=== PATIENT | female | born 1975 | race Caucasian/White ===

== ENCOUNTER 2019-11-28 08:48 | Outpatient (CLI) | payer BC, SELFPAY ==
--- NOTE | ~2019-11-28 | US_ITS ---
EXAMINATION: US right upper quadrant EXAM DATE: 11/28/2019 09:12 INDICATION: Postprandial abdominal pain and nausea. TECHNIQUE: Multiple grayscale and Doppler images of the abdomen right upper quadrant were obtained (b y a technologist who performed the scan) and subsequently reviewed. There is no prior study for renetta hutson. FINDINGS: The pancreatic head and body are normal in appearance. The pancreatic tail is not visualized. There is echogenic liver parenchyma, hepatic steatosis. There are no focal liver lesions identified. Th ere is no evidence of intrahepatic biliary duct dilation. Portal venous flow was seen in the hepatop edal, normal direction and has normal Doppler waveform. No right-sided hydronephrosis. Common bile duct measures 4-5 mm, which is normal. The gallbladder wall is normal in thickness, with expected amount of distention. No sonographic evidence of pericholecystic fluid. There is no cholel ithiases. Technologist performing exam reports patient did not demonstrate sonographic Duff's sign. Please note that this sign is less reliable in patients who have received pain medication. IMPRESSION: 1. Hepatic steatosis. Reviewed, dictated and finalized at location A. RAL SUPPLY TECHNICIAN IMPRESSION: 1. Hepatic steatosis.
== END 2019-11-28 08:49 | disposition home or self-care (01) ==
LOC: ANHIMG 08:49
PROVIDERS: PCP Family Medicine; Visit Provider Family Medicine
DX: R10.9 Unspecified abdominal pain (principal); K76.0 Fatty (change of) liver, not elsewhere classified
CPT/HCPCS: 76705

== ENCOUNTER 2020-09-21 15:43 | Emergency (ER) | payer BC, SELFPAY ==
[2020-09-21 15:56] VITALS: BP 153/61; PULSE 56; RESP 18; TEMP 36.6; O2SAT 98
--- NOTE | 2020-09-21 16:28 | ED.URI ---
HPI - URI/Sore Throat General Chief Complaint: Upper Respiratory Infection Stated Complaint: Runny nose,hard to breathe Time Seen by Provider: 09/21/20 16:05 Source: patient and RN notes reviewed Mode of arrival: ambulatory Limitations: no limitations History of Present Illness HPI Narrative: Patient presents today with a 5-day history of body aches, nasal congestion with postnasal drip and rhinorrhea as well as an occasional cough and mild sore throat. Patient notes states the symptoms have moved to her chest and she now complains of mild shortness of breath and wheezing. History of asthma. Denies fever, nausea, vomiting, diarrhea. She has been taking Aleve and using her inhaler. Denies COVID-19 exposure, recent COVID-19 testing. She presents today with her daughter with similar symptoms. Patient is a non-smoker. MD elicited complaint: cough Related Data Home Medications Medication Instructions Recorded Confirmed alprazolam 09/03/19 diltiazem HCl 09/03/19 meloxicam 09/03/19 metoprolol succinate PO 09/03/19 Qvar 09/21/20 diazepam 09/21/20 magnesium oxide mg 09/21/20 Allergies Allergy/AdvReac Type Severity Reaction Status Date / Time sulfamethoxazole Allergy Intermediate Hives / Verified 03/30/19 20:26 Red Face trimethoprim Allergy Intermediate Hives / Verified 03/30/19 20:26 Red Face ciprofloxacin AdvReac Unknown Unknown Verified 09/21/20 16:11 Review of Systems Review of Systems: Narrative: CONSTITUTIONAL: Denies fever, chills, or sweats. + Body aches EYES: Denies visual changes, redness, or discharge. ENT: Denies rhinorrhea,sore throat, or otalgia. + Nasal congestion, mild sore throat CARDIOVASCULAR: Denies chest pain, palpitations, or edema. RESPIRATORY:+ Cough, shortness of breath, wheezing GASTROINTESTINAL: Denies abdominal pain, nausea, vomiting, or diarrhea. GENITOURINARY: Denies dysuria or hematuria. SKIN: Denies rash, itching, or wounds. MUSCULOSKELETAL: Denies back pain, joint pain, or myalgia. NEUROLOGIC: Denies headache, numbness, tingling, or weakness. PSYCH: Denies depression or anxiety. [facility] Past Medical History Medical History (Updated 09/21/20 @ 17:05 by RCIHARD ParekhP, ) Anxiety Asthma Hypertension Palpitations Comments At time of signature, I have reviewed and agree with nursing past medical, surgical, social and family history unless otherwise noted. Please see nursing chart for further information. There is no relevant family history pertinent to the presenting complaint Exam Narrative: Exam Narrative: GENERAL: Well-appearing, well-nourished, and in no acute distress. HEAD: Normocephalic, atraumatic. EYES: EOMI. No redness or drainage. Conjunctivae normal. ENT: Mucous membranes pink and moist. Nares clear. No rhinorrhea. TMs normal bilaterally. Throat normal. Uvula midline. NECK: Normal AROM. Supple. No lymphadenopathy. CHEST: No respiratory distress. Clear to auscultation. HEART: Regular rate and rhythm. No murmur appreciated. Normal peripheral pulses. EXTREMITIES: Normal range of motion. No edema. SKIN: Warm, dry, no rash. Capillary refill normal. Normal skin turgor. NEURO: No focal deficits. Alert and oriented x3. Gait steady. PSYCH: Normal affect. No signs of depression or anxiety. Course Course Emergency Course: Due to recent exposure and symptoms, patient may have a possible COVID-19 infection. Signs and symptoms discussed with patient. Patient educated to self-isolate in a room in his/her home away from others they live with. Use mask if available. Patient was advised not to leave house for any reason ? Self-treatment discussed including Tylenol for fever, pain, or myalgia, and cough cold medications for symptoms. Patient to check temperature daily and monitor for symptoms of respiratory distress. Patient should check in daily with primary care office/system via phone/virtual platform ? Nature of the disease to
== END 2020-09-21 17:09 | disposition home or self-care (01) ==
PROVIDERS: Emergency Provider Nurse Practitioner; PCP Family Medicine
DX: B34.9 Viral infection, unspecified (principal); J45.901 Unspecified asthma with (acute) exacerbation; Z20.828 Contact with and (suspected) exposure to other viral communicable diseases; I10 Essential (primary) hypertension; F41.9 Anxiety disorder, unspecified
CPT/HCPCS: 99213; G0463

== ENCOUNTER 2020-09-22 08:09 | Outpatient (NON) | payer BC, SELFPAY ==
[2020-09-22 23:00] LABS: SARS-CoV-2 RNA PCR Negative
== END 2020-09-22 08:10 ==
PROVIDERS: PCP Family Medicine; Visit Provider Nurse Practitioner
DX: Z20.828 Contact with and (suspected) exposure to other viral communicable diseases (principal); B34.9 Viral infection, unspecified
CPT/HCPCS: 87635; C9803; U0003

== ENCOUNTER → 2020-10-21 | Outpatient (NON) | payer BC, SELFPAY ==
[2020-10-22 00:16] LABS: SARS-CoV-2 RNA PCR Negative
== END | disposition home or self-care (01) ==
LOC: ANHCOVIDDT 09:34
PROVIDERS: PCP Family Medicine; Visit Provider Family Medicine
DX: R09.81 Nasal congestion (principal); Z20.822 Contact with and (suspected) exposure to COVID-19
CPT/HCPCS: C9803; U0003; U0005

== ENCOUNTER 2020-11-29 13:50 | Observation (INO) | payer BC, SELFPAY ==
--- NOTE | ~2020-11-29 | CT_ITS ---
EXAMINATION: CT abdomen pelvis w con EXAM DATE: 11/29/2020 15:34 INDICATION: Lower abdominal pain, rectal bleeding. Nausea and vomiting. TECHNIQUE: Spiral CT of the abdomen and pelvis was performed following intravenous injection of 100 m L Omnipaque 350. Axial, coronal and sagittal images were reviewed. The dose-length product (DLP) fo r this examination was 304.49 mGy-cm. The exposure was tailored according to patient size (auto mA e xposure control), and iterative reconstruction (ASIR) was used as additional dose reduction technique . Comparison is made to prior examination from 05/26/2016. FINDINGS: Splenic granulomas. The liver, adrenal glands and pancreas are unremarkable. Gallbladder is unremarkable. No biliary obstruction. Portal and splenic veins are patent. Kidneys enhance symm etrically. There is no hydronephrosis. The uterus is unremarkable. The bladder is unremarkable. There is no retroperitoneal or pelvic lymphadenopathy. There is moderate colonic wall edema along the splenic flexure and descending colon, colitis. Vascula ture supplying this enhances as expected. No evidence of pneumatosis. The appendix is not positively visualized. There is no pericecal inflammatory change to suggest appendicitis. The stomach and sma ll bowel are unremarkable. No free intraperitoneal gas. The heart is normal in size. There are n o pericardial or pleural effusions. The lung bases are unremarkable. Chronic bilateral asymmetric s acroiliitis. IMPRESSION: 1. Splenic flexure, descending colonic colitis. Most likely infectious etiology. 2. Chronic asymmetric sacroiliitis Reviewed, dictated and finalized at location A. DESIGN ENGINEER IMPRESSION: 1. Splenic flexure, descending colonic colitis. Most likely infectious etiolog y. 2. Chronic asymmetric sacroiliitis
[2020-11-29 13:56] VITALS: BP 154/81; PULSE 77; RESP 16; TEMP 37; O2SAT 98
--- NOTE | 2020-11-29 14:17 | ED.ABDPAIN ---
HPI - Abdominal Pain General Chief Complaint: Abdominal Pain Stated Complaint: blood in stool, diarrhea flank pain Time Seen by Provider: 11/29/20 14:02 Source: patient and family Mode of arrival: ambulatory Limitations: no limitations History of Present Illness HPI narrative: Patient is 45 years old white female presents with nausea, vomiting and diarrhea started 4 days ago. Patient reported above symptoms started 2 hours after having a meal at a restaurant. Patient denies any fever or chills. Likely patient noticed blood in the toilet because she is straining to have a bowel movement without response. History of asthma, hypertension, section x2, does not take medications, does not smoke, drink or uses drugs. Related Data Home Medications Medication Instructions Recorded Confirmed alprazolam 09/03/19 diltiazem HCl 09/03/19 meloxicam 09/03/19 metoprolol succinate PO 09/03/19 Qvar 09/21/20 diazepam 09/21/20 magnesium oxide mg 09/21/20 Allergies Allergy/AdvReac Type Severity Reaction Status Date / Time sulfamethoxazole Allergy Intermediate Hives / Verified 11/29/20 14:06 Red Face trimethoprim Allergy Intermediate Hives / Verified 11/29/20 14:06 Red Face levofloxacin Allergy Hives Verified 11/29/20 17:42 Review of Systems Review of Systems: Narrative: CONSTITUTIONAL: Denies fever, chills, or sweats. EYES: Denies visual changes, redness, or discharge. ENT: Denies rhinorrhea, congestion, sore throat, or otalgia. CARDIOVASCULAR: Denies chest pain, palpitations, or edema. RESPIRATORY: Denies cough or dyspnea. GASTROINTESTINAL: Denies abdominal pain, nausea, vomiting, or diarrhea. GENITOURINARY: Denies dysuria or hematuria. SKIN: Denies rash or itching. MUSCULOSKELETAL: Denies back pain, joint pain, or myalgia. NEUROLOGIC: Denies headache, numbness, or weakness. PSYCHIATRIC: Denies anxiety or depression. [facility] Past Medical History Medical History (Updated 11/29/20 @ 16:51 by Lesly Maldonado PA-C) Anxiety Asthma Hypertension Pre-diabetes Surgical History Surgical History (Updated 11/29/20 @ 16:48 by Lesly Maldonado PA-C) History of 2 sections History of tubal ligation Family History Family History Other Acute myocardial infarction Breast cancer Social History Social History (Updated 11/29/20 @ 16:49 by Lesly Maldonado PA-C) Social History: The patient lives in [place] with her fiance. 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 No alcohol or illicit substance abuse. She designates her fiance, Brooks Riggs, as her surrogate decision maker and she wishes to be a full code. Exam Narrative: Exam Narrative: General appearance: Well-developed, well-nourished Skin: Normal color Head: Normocephalic, nontraumatic Eyes: Clear conjunctiva ENT: Oropharynx normal, ears normal, nose normal Neck: Supple, nontender Chest and respiratory: Airway patent, no respiratory distress, no accessory muscle use Heart: Regular rate/rhythm Abdomen: Soft, mild diffuse tenderness lower abdomen bilaterally, no guarding or rebound, quiet bowel sounds. Vascular: Normal peripheral pulses, normal capillary refill. Musculoskeletal: Normal range of motion, nontender back Neurologic: Alert and oriented ?3, PERMIT SPECIALIST is normal as tested, no gross motor deficit Const: General: cooperative Course Course Emergency Course: Stable Reevaluation(s) Reevaluation #1: Patient received the first dose of Flagyl, followed by the second dose of Levaquin few minutes later patient developed itching skin rash, Levaq
[2020-11-29 14:32] LABS: Basophils Absolute Auto 0.1 K/mm3 (0.0-0.1); Basophils Percent Auto 0.4 % (0.2-1.2); Eosinophils Absolute Auto 0.2 K/mm3 (0-0.3); Eosinophils Percent Auto 1.4 % (0-4.4); Hematocrit 45.4 % (37.0-47.0); Hemoglobin 15.4 g/dL (12.0-15.0); Immature Granulocyte Absolute 0.06 K/mm3 (0.00-0.031); Immature Granulocyte Percent A 0.4 % (0-0.5); Lymphocytes Absolute Auto 3.18 K/mm3 (0.9-3.2); Lymphocytes Percent Auto 19.9 % (18.3-44.2); Mean Corpuscular HGB Conc 33.9 g/dl (32-36); Mean Corpuscular Hemoglobin 32.3 pg (26-34); Mean Corpuscular Volume 95.2 fl (80-100); Mean Platelet Volume 11.4 fl (7.4-10.4); Monocytes Percent Auto 6.3 % (2.6-8.5); Neutrophils Absolute Auto 11.5 K/mm3 (1.3-6.7); Neutrophils Percent Auto 71.6 % (45.5-73.1); Platelet Count Result 273 k/mm3 (150-375); Red Blood Count 4.77 M/mm3 (4.2-5.4); Red Cell Distribution Width 12.2 % (11.5-14.5)
[2020-11-29] MEDS: SODIUM CHLORIDE 0.9% IV 1,000 ML 999 ML IV CONT (14:41)
[2020-11-29 14:42] LABS: Add Urine Microscopic? YES; Appearance Urine Cloudy (Clear); Bacteria Urine Trace /hpf; Bilirubin Urine Negative (Negative); Blood Urine 2+ (Negative); Color Urine Yellow (Yellow); Glucose Urine UA Negative (Negative); Ketones Urine Negative (Negative); Leukocyte Esterase Ur Negative LEU/UL (Negative); Mucus Urine Heavy /lpf; Nitrate Urine Negative (Negative); Protein Urine 1+ mg/dL (Negative); Squamous Epithelial Cell Urine Many /hpf (Few); Urobilinogen Urine Negative mg/dL (<2.0)
[2020-11-29 14:44] LABS: Alanine Aminotransferase 13 U/L (4-35); Albumin Level 4.2 g/dL (3.5-5.1); Alkaline Phosphatase 77 U/L (38-126); Anion Gap 10 mmol/L (8-16); Aspartate Amino Transferase 22 U/L (14-36); Bilirubin,Total 0.3 mg/dL (0.2-1.3); Blood Urea Nitrogen 17 mg/dL (7-17); Calcium 9.4 mg/dL (8.4-10.2); Carbon Dioxide 27 mmol/L (22-30); Chloride 103 mmol/L (98-107); Estimated CRCL calculation 65 ml/min; Estimated Glomerular Filt Rate > 60; Glucose 130 mg/dL (65-105); Lipase 79 U/L (23-300); Potassium 3.7 mmol/L (3.4-5.0); Sodium 140 mmol/L (137-145)
[2020-11-29 14:48] LABS: Urine Pregnancy Test Negative
[2020-11-29 14:49] LABS: Pregnancy On Board Control Positive
[2020-11-29] MEDS: metroNIDAZOLE 500 MG/ISO 100ML 500 MG/100 ML BAG 100 MG IVPB (16:19)
[2020-11-29 16:20] VITALS: BP 129/66; PULSE 67; RESP 16; O2SAT 100
--- NOTE | 2020-11-29 16:30 | PM.IMHP ---
H&P: HPI History of Present Illness Date/Time: 11/29/20 16:30 Chief Complaint: Abdominal pain and bloody stools Narrative: This is a 45-year-old female with hypertension, asthma, and pre diabetes who presented to the emergency department earlier today from home for evaluation of abdominal pain and bloody stools. On Tuesday evening she had reheated, leftover shrimp tacos from a local restaurant and approximately 2-1/2 hours thereafter she developed severe, diffuse abdominal cramping. She had a sudden urge to have a bowel movement however was unable to do so and she has had intermittent tenesmus and loose stool since that time. Due to the tenesmus it sounds like she has indeed strained to have bowel movements and over the past couple of days she has noticed bright red blood in at times small clots with each bowel movement. The 1st night of her symptoms she had nausea and vomiting but that has since subsided. She has been afraid to eat too much because of the pain, but tolerated toast this morning and she reports being hungry at this time. No fever, chills, or sweats however her fiance believes that she felt a bit warm earlier. 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 She has not taken any medication at home for symptoms aside from Tylenol on a few occasions that did not necessarily help with the discomfort. Weight has remained stable. No history of inflammatory bowel disease. Review of Systems Review of Systems: Narrative: Twelve systems were reviewed with pertinent positives and negatives as per HPI. No cold or flu symptoms. She denies cough and shortness of breath. She just finished a 5 day course of Macrobid today for recent urinary tract infection. Denies back pain. No history of autoimmune diseases. Recently told she was prediabetic and she was given a glucometer to monitor her glucose, with no significant eyes. Except as documented, all other systems were reviewed and are negative. [facility] Past Medical History Medical History Anxiety Asthma Hypertension Pre-diabetes Surgical History Surgical History (Updated 11/29/20 @ 16:48 by Lesly Maldonado PA-C) History of 2 sections History of tubal ligation Family History Family History Other Acute myocardial infarction Breast cancer Social History Social History (Updated 11/29/20 @ 16:49 by Lesly Maldonado PA-C) Social History: The patient lives in [place] with her fiance. 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 No alcohol or illicit substance abuse. She designates her fiance, Brooks Riggs, as her surrogate decision maker and she wishes to be a full code. Meds Home Medications and Allergies Home Medications Medication Instructions Recorded Confirmed Type alprazolam 09/03/19 History diltiazem HCl 09/03/19 History meloxicam 09/03/19 History metoprolol succinate PO 09/03/19 History triamcinolone acetonide 1 applic TOPICAL BID #30 gm 09/03/19 Rx Qvar 09/21/20 History diazepam 09/21/20 History magnesium oxide mg 09/21/20 History prednisone 50 mg PO DAILY 5 Days #5 tablet 09/21/20 Rx Allergies Allergy/AdvReac Type Severity Reaction Status Date / Time sulfamethoxazole Allergy Intermediate Hives / Verified 11/29/20 14:06 Red Face trimethoprim Allergy Intermediate Hives / Verified 11/29/20 14:06 Red Face Vital Signs Vital Signs - 24 hr 11/29/20 13:56 11/29/20 16:20 Temperature 98.6 F Pulse Rate 77 67 Respiratory Rate 16 16 Blood Pressure 154/81 H 129/66 Pulse Oximetry 98 100 Exam Narrative: Exam Narrative: General: Well-developed female lying on her left side in bed in no distress. Weight: 60.6 kilograms. BMI: 26.1. HEENT: PERRL, EOMI. Sclera
[2020-11-29 17:32] VITALS: BP 120/65; PULSE 83; RESP 16; O2SAT 98
--- NOTE | 2020-11-29 17:39 | PC.NURSE ---
called to room approx 10 mins after iv levaquin started. pt c/o itching scalp, face and chest. several small hives observed to anterior chest. denies sob or difficulty swallowing. iv stopped and ed physician notified. will give benadryl iv stat.
[2020-11-29] MEDS: diphenhydrAMINE HCl INJ 50 MG/ML VIAL 25 MG IV PUSH (17:45)
[2020-11-29 17:50] LABS: Hemoglobin A1C 5.2 % (<5.7)
--- NOTE | 2020-11-29 17:55 | PC.NURSE ---
This patient, Noelle Jordan, was admitted to Medical Room 340-01. Patient/family oriented to hospital policies and general routines including ID bracelet, bed and alarms, visiting hours, pain management, procedures, bathroom and other care routines, personal items, smoking policy, room service/diet, and visiting hours. Information on how to activate the Rapid Response Team has been discussed. Patient/Family are encouraged to report perceived risks to care and to ask questions if they do not understand what they are told or what they should do.
[2020-11-29 17:57] VITALS: BP 142/64; PULSE 67; RESP 16; TEMP 36.9; O2SAT 96
--- NOTE | 2020-11-29 17:58 | PC.NURSE ---
Patient voiced that she can tolerate a soft diet when I voiced that she would start out on a clear liquid diet.
[2020-11-29 18:21] VITALS: BMI 26.7
[2020-11-29] MEDS: SODIUM CHLORIDE 0.9% IV 1,000 ML 75 ML IV CONT (19:09)
[2020-11-29 19:25] VITALS: BP 100/50; PULSE 69; RESP 14; TEMP 37.2; O2SAT 96
[2020-11-29 22:11] LABS: Hematocrit 39.6 % (37.0-47.0); Hemoglobin 13.4 g/dL (12.0-15.0)
[2020-11-30] VITALS (7 sets, daily range): BP systolic 109–123; BP diastolic 47–68; PULSE 55–60; RESP 14–16; TEMP 36.1–36.7; O2SAT 93–99
[2020-11-30 06:09] LABS: Basophils Absolute Auto 0.1 K/mm3 (0.0-0.1); Basophils Percent Auto 0.4 % (0.2-1.2); Eosinophils Absolute Auto 0.3 K/mm3 (0-0.3); Eosinophils Percent Auto 1.9 % (0-4.4); Hematocrit 37.9 % (37.0-47.0); Hemoglobin 12.5 g/dL (12.0-15.0); Immature Granulocyte Absolute 0.06 K/mm3 (0.00-0.031); Immature Granulocyte Percent A 0.4 % (0-0.5); Lymphocytes Absolute Auto 3.32 K/mm3 (0.9-3.2); Lymphocytes Percent Auto 24.8 % (18.3-44.2); Mean Corpuscular Hemoglobin 31.6 pg (26-34); Mean Corpuscular Volume 95.7 fl (80-100); Mean Platelet Volume 11.8 fl (7.4-10.4); Monocytes Absolute Auto 0.9 K/mm3 (0.1-0.6); Monocytes Percent Auto 6.6 % (2.6-8.5); Neutrophils Absolute Auto 8.8 K/mm3 (1.3-6.7); Neutrophils Percent Auto 65.9 % (45.5-73.1); Platelet Count Result 226 k/mm3 (150-375); Red Blood Count 3.96 M/mm3 (4.2-5.4); Red Cell Distribution Width 12.4 % (11.5-14.5); White Blood Count 13.4 K/mm3 (4.5-10.0)
[2020-11-30 06:26] LABS: Anion Gap 4 mmol/L (8-16); Blood Urea Nitrogen 10 mg/dL (7-17); Calcium 8.3 mg/dL (8.4-10.2); Carbon Dioxide 26 mmol/L (22-30); Chloride 109 mmol/L (98-107); Estimated CRCL calculation 74 ml/min; Estimated Glomerular Filt Rate > 60; Glucose 90 mg/dL (65-105); Magnesium 1.8 mg/dL (1.6-2.3); Potassium 3.8 mmol/L (3.4-5.0); Sodium 139 mmol/L (137-145)
[2020-11-30] MEDS: ACETAMINOPHEN 325 MG TABLET 650 MG PO (09:39)
[2020-11-30] MEDS: SODIUM CHLORIDE 0.9% IV 1,000 ML 75 ML IV CONT ×2 (09:40→23:59)
[2020-11-30] MEDS: MAGNESIUM OXIDE 400 MG TABLET PO (11:35)
[2020-11-30] MEDS: METOPROLOL SUCCINATE EXT REL 50 MG TABCR 100 MG PO (11:38)
--- NOTE | 2020-11-30 11:47 | WPDGICN ---
Assessment and Plan Assessment and plan (1) Colitis: Code(s): K52.9 - Noninfective gastroenteritis and colitis, unspecified Status: Acute Assessment and Plan: probably infectious, less likely ischemic continue with supportive care, antibiotics, fluids advance diet slowly as tolerated pending stool samples she is already doing better, consider colonoscopy in about 6 weeks as outpatient (2) Bloody stools: Code(s): K92.1 - Melena Status: Acute Assessment and Plan: from colitis (3) Nausea and vomiting in adult: Code(s): R11.2 - Nausea with vomiting, unspecified Status: Acute Assessment and Plan: resolved now (4) Lower abdominal pain: Code(s): R10.30 - Lower abdominal pain, unspecified Status: Acute Assessment and Plan: medical treatment, better (5) Bloody diarrhea: Code(s): R19.7 - Diarrhea, unspecified Status: Acute GI Consult Note Consult date/time: 11/30/20 11:47 Reason for consult: colitis HPI: Noelle Jordan is a 45 year old female with history of HTN otherwise healthy. Last Tuesday she had for lunch chilli, then for dinner street tacos and after 2 hours had new onset of severe cramping in abdomen with tenesmus, followed by nausea and vomiting for few hours, then loose stools with streak of blood. Nausea resolved but still was having diarrhea and pain for which she was only on a bland diet, finally decided to come to ER. CT scan reviewed which showed splenic flexure, descending colonic colitis. Most likely infectious etiology. Admitted to hospital, stool sample pending and started on antibiotics. Also had leukocytosis, normal liver enzymes and lactic acid. She is feeling better and is hungry. Never had scopes or similar problem. Review of Systems Constitutional: Constitutional: Reports chills Eyes: Eyes: Reports no additional eye complaints ENT: Reports system reviewed and no additional complaints, except as documented Cardiovascular: Cardiovascular: Denies chest pain Respiratory: Respiratory: Denies dyspnea Gastrointestinal: Gastrointestinal: Reports abdominal pain, Reports diarrhea, Reports nausea and Reports vomiting Genitourinary: Genitourinary: Denies hematuria Musculoskeletal: Musculoskeletal: Denies neck pain Integumentary/Breasts: Skin/Breast: Denies dry skin Neurologic: Denies headache(s) Psychiatric: Psychiatric: Reports no additional psychiatric complaints Endocrine: Endocrine: Denies cold intolerance Hematologic/Lymphatic: Hematologic/Lymphatic: Denies easy bruising PMFSH Past Medical History Medical History (Updated 11/30/20 @ 11:52 by Norm Connolly MD) Anxiety Asthma Bloody diarrhea Hypertension Lower abdominal pain Nausea and vomiting in adult Pre-diabetes Surgical History Surgical History (Updated 11/29/20 @ 16:48 by Lesly Maldonado PA-C) History of 2 sections History of tubal ligation Family History Family History Other Acute myocardial infarction Breast cancer Social History Social History (Updated 11/29/20 @ 16:49 by Lesly Maldonado PA-C) Social History: The patient lives in [place] with her fiance. 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 No alcohol or illicit substance abuse. She designates her fiance, Brooks Rigsg, as her surrogate decision maker and she wishes to be a full code. Alcohol intake: never Substance use type: does not use Spiritual care concerns: No Meds Home Medications and Allergies Home Medications Medication Instructions Recorded Confirmed Type alprazolam 0.5 mg PO BID PRN 09/03/19 11/29/20 History metoprolol succinate 100 mg PO DAILY 09/03/19 11/29/20 History diazepam 2 mg PO HS PRN 09/21/20 11/29/20 History magnesium oxide 400 mg PO BID 09/21/20 11/29/20 History albuterol sulfate [ProAir
--- NOTE | 2020-11-30 12:33 | PM.IMPN ---
Progress Note: A&P Assessment and Plan (1) Infectious colitis: Code(s): A09 - Infectious gastroenteritis and colitis, unspecified Status: Acute Assessment and Plan: Patient was having nausea/vomiting/diarrhea on 11/26/20, and continued to persistently have diarrhea and abdominal cramping daily with associated bright red blood in her stools. On arrival, CT consistent with probable infectious colitis and she has been started on levofloxacin and metronidazole. Leukocytosis improving. Stool studies will be obtained. Dr. Connolly GI was consulted by the ED physician his input is appreciated. Currently she is still having abdominal cramping, distension and bowel movements. Continue monitoring, IV fluid hydration, IV antibiotics (2) Bloody stools: Code(s): K92.1 - Melena Status: Acute Assessment and Plan: Most likely from colitis. Bloody stools for 5 days. H&H is currently normal. Continue monitoring H&H daily. (3) Hypertension: Code(s): I10 - Essential (primary) hypertension Status: Inactive Assessment and Plan: Blood pressure was 154/81 on arrival, this morning it was 123/63.. Since then blood pressure has remained stable. Will continue home metoprolol. (4) Pre-diabetes: Code(s): R73.03 - Prediabetes Status: Inactive Assessment and Plan: Hemoglobin A1c is 5.2%. No need for monitoring of glucose at this time. Time Spent With Patient Time with patient: 25 - 35 minutes Subjective Date/time seen: 11/30/20 12:33 Interval history: Date of service 11/30/2020: Patient still having lower abdominal cramping and distension, and a few diarrhea bowel movements today. Still with some blood in her stool. Denies any fevers, chills. She is hungry at this time and ready to start advancing her diet. Denies any nausea or vomiting. She denies any chest pain, shortness of breath, cough, leg swelling, calf pain, or any other symptoms at this time. Review of Systems Review of Systems: All systems reviewed & are unremarkable except as noted in HPI and below Exam Narrative: Exam Narrative: General: 45-year-old woman sitting up in bed watching TV. Appears comfortable. In no acute distress. Skin: No jaundice or cyanosis. Good skin turgor. Neck: Full range of motion. Supple. Respiratory: Lungs are clear to auscultation bilaterally. No bony chest wall tenderness. Cardiovascular: The heart has a regular rate and rhythm without murmur. Lower extremities: No lower extremity edema. Distal pulses are easily palpated. No calf tenderness to palpation. Gastrointestinal: Slight abdominal distension and tenderness noted. Otherwise The abdomen is soft with active bowel sounds. Psychiatric: Lucid and oriented. Memory intact. Neurologic: No focal deficits. Speech is clear. No facial drooping. Objective Data Vital Signs Vital Signs: Vital Signs - 24 hr 11/29/20 13:56 11/29/20 16:20 11/29/20 17:32 Temperature 98.6 F Pulse Rate 77 67 83 Respiratory Rate 16 16 16 Blood Pressure 154/81 H 129/66 120/65 Pulse Oximetry 98 100 98 11/29/20 17:57 11/29/20 19:25 11/30/20 05:26 Temperature 98.4 F 99 F 97.5 F L Pulse Rate 67 69 57 L Respiratory Rate 16 14 14 Blood Pressure 142/64 H 100/50 L 114/47 L Pulse Oximetry 96 96 96 11/30/20 07:29 11/30/20 09:54 11/30/20 11:37 Temperature Pulse Rate 55 L 55 L Respiratory Rate Blood Pressure 123/63 120/61 Pulse Oximetry 93 Intake/Output Intake/Output: Intake & Output 11/27/20 11/28/20 11/29/20 11/30/20 23:59 23:59 23:59 23:59 Intake Total 1200 1450 Output Total 600 Balance 1200 850 Meds/Results Medications: Active Medications Generic Name Dose Route Start Last Admin Trade Nam
[2020-11-30] MEDS: ALBUTEROL SULFATE (*SP) AEROSOL 1 PUFF 2 PUFF INHALATION (15:11)
[2020-12-01 05:29] VITALS: BP 101/55; PULSE 52; RESP 14; TEMP 36.2; O2SAT 96
[2020-12-01 05:43] LABS: Hematocrit 36.2 % (37.0-47.0); Mean Corpuscular HGB Conc 33.1 g/dl (32-36); Mean Corpuscular Volume 96.5 fl (80-100); Mean Platelet Volume 11.2 fl (7.4-10.4); Platelet Count Result 197 k/mm3 (150-375); Red Blood Count 3.75 M/mm3 (4.2-5.4); Red Cell Distribution Width 12.4 % (11.5-14.5); White Blood Count 8.5 K/mm3 (4.5-10.0)
[2020-12-01 06:00] LABS: Anion Gap 0 mmol/L (8-16); Blood Urea Nitrogen 10 mg/dL (7-17); Calcium 7.8 mg/dL (8.4-10.2); Carbon Dioxide 26 mmol/L (22-30); Chloride 111 mmol/L (98-107); Estimated CRCL calculation 85 ml/min; Estimated Glomerular Filt Rate > 60; Glucose 91 mg/dL (65-105); Potassium 3.6 mmol/L (3.4-5.0); Sodium 137 mmol/L (137-145)
[2020-12-01 08:39] VITALS: PULSE 56
[2020-12-01] MEDS: METOPROLOL SUCCINATE EXT REL 50 MG TABCR 100 MG PO (08:39)
[2020-12-01] MEDS: MAGNESIUM OXIDE 400 MG TABLET PO (08:40)
[2020-12-01] MEDS: CHOLECALCIFEROL 1,000 UNITS TABLET 1000 UNITS PO (08:59)
[2020-12-01] MEDS: ACETAMINOPHEN 325 MG TABLET 650 MG PO (10:15)
[2020-12-01] MEDS: ALBUTEROL SULFATE (*SP) AEROSOL 1 PUFF 2 PUFF INHALATION (10:48)
[2020-12-01 14:00] VITALS: BP 102/50; PULSE 50; RESP 16; TEMP 36.3; O2SAT 98
--- NOTE | 2020-12-01 14:01 | WPDGIPROGNO ---
Progress Note: A&P Assessment and Plan (1) Colitis: Code(s): K52.9 - Noninfective gastroenteritis and colitis, unspecified Status: Acute Assessment and Plan: she is doing better, tolerating diet and still some pain but improved on antibiotics, Cdiff negative and other stool sample pending (2) Bloody diarrhea: Code(s): R19.7 - Diarrhea, unspecified Status: Acute Assessment and Plan: no more blood in stool will need a colonoscopy in 6-8 weeks as outpatient (3) Lower abdominal pain: Code(s): R10.30 - Lower abdominal pain, unspecified Status: Acute Assessment and Plan: better with supportive care will reassess tomorrow and see if she can go home (4) Nausea and vomiting in adult: Code(s): R11.2 - Nausea with vomiting, unspecified Status: Acute Subjective Date/time seen: 12/01/20 14:01 Interval history: still abdominal cramping but overall better, no more blood in stools Review of Systems Review of Systems: All systems reviewed & are unremarkable except as noted in HPI and below Exam Const: General: comfortable and no acute distress HENMT: General nose exam: Normal nares present Eyes: General: appearance normal, both eyes and all related structures Neck: Neck: no JVD Resp: Auscultation: clear to auscultation bilaterally Cardio: Rate: regular rate Rhythm: regular rhythm GI: Inspection: non-distended GI Palp: Yes Soft to palpation, Yes Tenderness to palpation present (GI) (mild pain in lower abdomen, no rebound) and No Guarding due to palpation present (GI) Auscultation: normal bowel sounds Skin: General skin exam: normal color Neuro: General: gait normal Speech: normal speech Extrem: General: normal to inspection Psych: Mental Status: mental status grossly normal Objective Data Vital Signs Vital Signs: Vital Signs - 24 hr 11/30/20 19:45 12/01/20 05:29 12/01/20 08:39 Temperature 97 F L 97.2 F L Pulse Rate 60 52 L 56 L Respiratory Rate 14 14 Blood Pressure 109/50 L 101/55 L Pulse Oximetry 98 96 Intake/Output Intake/Output: Intake & Output 11/28/20 11/29/20 11/30/20 12/01/20 23:59 23:59 23:59 23:59 Intake Total 1200 3340 1150 Output Total 1400 1450 Balance 1200 1940 -300 Meds/Results Medications: Active Medications Generic Name Dose Route Start Last Admin Trade Name Freq PRN Reason Stop Dose Admin Acetaminophen 650 mg 11/30/20 08:38 12/01/20 10:15 Acetaminophen 325 Mg Tablet PO 650 mg Q4H PRN Administration Pain Rated 1-3 Albuterol 2 puff 11/30/20 08:29 12/01/20 10:48 Albuterol Sulfate (*Sp) Aerosol 1 Puff INHALATION 2 puff TID PRN Administration Shortness Of Breath Alprazolam 0.5 mg 11/30/20 08:29 Alprazolam (*Crx) 0.5 Mg Tablet PO BID PRN Anxiety Diazepam 2 mg 11/30/20 08:29 Diazepam (*Crx) 2 Mg Tablet PO HS PRN Insomnia Diltiazem HCl 120 mg 11/30/20 09:00 12/01/20 08:40 Diltiazem Hcl Cd 120 Mg Cap.Sa.24h PO 120 mg DAILY ENOCH Administration Piperacillin/Tazobactam/Dextrose 3.375 gm in 50 mls @ 100 mls/hr 11/30/20 00:00 12/01/20 12:09 Zosyn 3.375 Gm/D5w 50ml Pm IVPB Infused Q6HR ENOCH Infusion Magnesium Oxide 400 mg 12/01/20 09:00 12/01/20 08:40 Magnesium Oxide 400 Mg Tablet PO 400 mg QAM ENOCH Administration Metoprolol Succinate 100 mg 11/30/20 09:00 12/01/20 08:39 Metoprolol Succinate Ext Rel 50 Mg Tabcr PO 100 mg DAILY ENOCH Administration Ondansetron HCl 4 mg 11/29/20 16:27 Ondansetron Inj 4 Mg/2 Ml Vial IV PUSH Q4H PRN Nausea Vitamin D 1,000 units 12/01/20 09:00 12/01/20 08:59 Cholecalciferol 1,000 Units Tablet PO 12/31/20 09:01 1,000 units DAILY ENOCH Administration Radiology Results: ITS Impressions Abdomen/Pelvis CT 11/29/20 15:37 IMPRESSION: 1. Splenic flexure, descending colonic colitis. Most likely infectious etiology. 2. Chronic asymmetric
--- NOTE | 2020-12-01 14:38 | PM.IMPN ---
Progress Note: A&P Assessment and Plan (1) Infectious colitis: Code(s): A09 - Infectious gastroenteritis and colitis, unspecified Status: Acute Assessment and Plan: Patient was having nausea/vomiting/diarrhea on 11/26/20, and continued to persistently have diarrhea and abdominal cramping daily with associated bright red blood in her stools. On arrival, CT consistent with probable infectious colitis and she has been started on levofloxacin and metronidazole. Leukocytosis normalized. Stool studies will be obtained. Negative for C. diff and Cryptospordium. Pending others. Dr. Connolly GI was consulted by the ED physician his input is appreciated. Currently she is still having abdominal cramping, distension and bowel movements. Continue monitoring, IV fluid hydration, IV antibiotics (2) Bloody stools: Code(s): K92.1 - Melena Status: Acute Assessment and Plan: Most likely from colitis. Bloody stools for 5 days. H&H is currently normal. Continue monitoring H&H daily. (3) Hypertension: Code(s): I10 - Essential (primary) hypertension Status: Inactive Assessment and Plan: Blood pressure was 154/81 on arrival, this morning it was 101/55. Since then blood pressure has remained stable. Will continue home metoprolol. (4) Pre-diabetes: Code(s): R73.03 - Prediabetes Status: Inactive Assessment and Plan: Hemoglobin A1c is 5.2%. No need for monitoring of glucose at this time. Time Spent With Patient Time with patient: 25 - 35 minutes Subjective Date/time seen: 12/01/20 14:38 Interval history: Date of service 12/01/2020: Patient still having lower abdominal cramping and distension, and a few diarrhea bowel movements today. Denies much improvement, but denies any more blood in the stool. Denies any fevers, chills. She is hungry at this time and ready to start advancing her diet. Denies any nausea or vomiting. She denies any chest pain, shortness of breath, cough, leg swelling, calf pain, or any other symptoms at this time. Review of Systems Review of Systems: All systems reviewed & are unremarkable except as noted in HPI and below Exam Narrative: Exam Narrative: General: 45-year-old woman sitting up in bed talking to her significant other. Appears comfortable. In no acute distress. Skin: No jaundice or cyanosis. Good skin turgor. Neck: Full range of motion. Supple. Respiratory: Lungs are clear to auscultation bilaterally. No bony chest wall tenderness. Cardiovascular: The heart has a regular rate and rhythm without murmur. Lower extremities: No lower extremity edema. Distal pulses are easily palpated. No calf tenderness to palpation. Gastrointestinal: Improved abdominal distension and tenderness noted. Otherwise The abdomen is soft with active bowel sounds. Psychiatric: Lucid and oriented. Memory intact. Neurologic: No focal deficits. Speech is clear. No facial drooping. Objective Data Vital Signs Vital Signs: Vital Signs - 24 hr 11/30/20 19:45 12/01/20 05:29 12/01/20 08:39 Temperature 97 F L 97.2 F L Pulse Rate 60 52 L 56 L Respiratory Rate 14 14 Blood Pressure 109/50 L 101/55 L Pulse Oximetry 98 96 Intake/Output Intake/Output: Intake & Output 11/28/20 11/29/20 11/30/20 12/01/20 23:59 23:59 23:59 23:59 Intake Total 1200 3340 2150 Output Total 1400 1450 Balance 1200 1940 700 Meds/Results Medications: Active Medications Generic Name Dose Route Start Last Admin Trade Name Freq PRN Reason Stop Dose Admin Acetaminophen 650 mg 11/30/20 08:38 12/01/20 10:15 Acetaminophen 325 Mg Tablet PO 650 mg Q4H PRN Administration Pain Rated 1-3 Albuterol 2 puff 11/30/20 08:29 02/22/21 10:48 Rene
[2020-12-01 21:51] VITALS: BP 115/45; PULSE 55; RESP 16; TEMP 36.3; O2SAT 99
[2020-12-02 06:40] VITALS: BP 106/54; PULSE 50; RESP 16; TEMP 35.8; O2SAT 96
[2020-12-02] MEDS: MAGNESIUM OXIDE 400 MG TABLET PO (08:56)
[2020-12-02] MEDS: CHOLECALCIFEROL 1,000 UNITS TABLET 1000 UNITS PO (08:56)
[2020-12-02 08:57] VITALS: PULSE 56
[2020-12-02] MEDS: METOPROLOL SUCCINATE EXT REL 50 MG TABCR 100 MG PO (08:57)
[2020-12-02] MEDS: ACETAMINOPHEN 325 MG TABLET 650 MG PO (09:00)
[2020-12-02] MEDS: ALBUTEROL SULFATE (*SP) AEROSOL 1 PUFF 2 PUFF INHALATION (09:01)
--- NOTE | 2020-12-02 10:23 | PM.DS ---
DS: Admitting Diagnosis Admitting Diagnosis Admitting Diagnosis: Colitis, likely infectious, bloody stools DS: Discharge Diagnosis Discharge Diagnosis (1) Colitis: Code(s): K52.9 - Noninfective gastroenteritis and colitis, unspecified Status: Acute Assessment and Plan: Infectious vs less likely ischemic. Patient was having nausea/vomiting/diarrhea with bloody stools x5 days prior to arrival. On arrival, CT consistent with probable infectious colitis and was given Levaquin and Flagyl initially in ED; switched to IV Zosyn at admission given allergy to Levaquin. Leukocytosis normalized. Patient still having cramping, bloating but overall improved since admission. No Bloody stools since admission. Stool studies negative thus far. Dr. Connolly GI was consulted by the ED physician his input is appreciated. Likely discharge on PO cefdinir and Flagyl to complete 5-7 days total therapy Tylenol PRN for pain Low fiber diet per Dr. Zurita rec F/u with Dr. Zurita in 6-8 weeks for colonoscopy F/u with PCP (2) Bloody stools: Code(s): K92.1 - Melena Status: Acute Assessment and Plan: Most likely from colitis. This has resolved. H&H is WNL F/u with PCP (3) Hypertension: Code(s): I10 - Essential (primary) hypertension Status: Inactive Assessment and Plan: Blood pressure 100s sys most recently Will continue home metoprolol. (4) Pre-diabetes: Code(s): R73.03 - Prediabetes Status: Inactive Assessment and Plan: Hemoglobin A1c is 5.2%. F/u with PCP DS: Summary Hospital Course Reason for hospitalization: Colitis Hospital Course: Date of arrival: 11/29/20 Date of discharge: 12/02/20 Patient is a 45-year-old female with hypertension, asthma, and pre diabetes who presented to the emergency department on 11/29 from home for evaluation of abdominal pain and bloody stools. While in the ED, CT abd/pelvis showed splenic flexure, descending colonic colitis, suggesting likely infectious etiology. She was placed on Levaquin and Flagyl in ED and Dr. Connolly (GI) was consulted from the ED. Levaquin and Flagyl was discontinued as patient had an allergic response (skin rash, pruritus) to seemingly Levaquin. She was given Benadryl with resolution of rash. Patient admitted under this setting of colitis. Please see H&P for further details. Patient was admitted to the hospitalist service for further management/treatment. After admission, patient was transitioned to IV zosyn; this continued until discharge. Her abdominal pain and bloody stools improved/resolved during stay. Dr. Connolly evaluated patient and recommended continuing antibiotics during stay and following up with colonoscopy in 6 weeks as outpatient. She was given IV fluids and her diet was advanced during stay. She had significant clinical improvement during stay. Plan was for her to continue on cefdinir and flagyl through 12/04 to complete 5 days total of antibiotics. She was to follow up with her PCP and Dr. Connolly after discharge. Low fiber diet was recommended. Patient agreeable and comfortable with plan for discharge. Patient hemodynamically stable and in improved condition for discharge on 12/02 Status at Discharge Overall status at discharge: patient is progressing back to baseline Time Spent with Patient Time attestation: Total time spent providing and/or coordinating discharge services: Time spent: Greater than 30 minutes Exam Narrative: Exam Narrative: General: Patient sitting upright in bed in no acute distress. HEENT: Normocephalic, EOMI, oral mucosa moist. Cardiovascular: Rate and rhythm are regular. No notable murmur, rub, or gallop. Respiratory: Lungs cl
== END 2020-12-02 12:36 | disposition home or self-care (01) ==
LOC: ANHED 16:49 → ANH3MED 16:56
PROVIDERS: Physician Assistant; Admitting Provider Internal Medicine; Emergency Provider Emergency Medicine; PCP Family Medicine; Visit Provider Physician Assistant
DX: K52.9 Noninfective gastroenteritis and colitis, unspecified (principal); I10 Essential (primary) hypertension; R73.03 Prediabetes; J45.909 Unspecified asthma, uncomplicated
CPT/HCPCS: 36415; 74177; 80048; 80053; 81001; 81025; 83036; 83605; 83690; 83735; 85014; 85018; 85025; 85027; 87015; 87045; 87046; 87269; 87272; 87324; 87427; 89055; 96361; 96365; 96367; 96375; 96376; 99285; A9270; G0378; G0379; J1200; J1956; J2543; J7030; Q9967

== ENCOUNTER 2020-12-20 13:05 | Emergency (ER) | payer BC, SELFPAY ==
--- NOTE | 2020-12-20 13:16 | ED.FEMALEGU ---
HPI - Female Genitourinary General Chief complaint: Upper Respiratory Infection Stated complaint: uti Time Seen by Provider: 12/20/20 13:16 Source: patient and RN notes reviewed History of Present Illness HPI Narrative: Patient is a 45-year-old female who presents the urgent care with complaints of a possible UTI. Patient states she has recently been on a couple different antibiotics for colitis. States that she does have some scant vaginal discharge. States that she woke up this morning with the right sided low back pain, frequency, urgency and dysuria. Patient denies of abdominal pain, nausea, vomiting, fever. Patient states that she is currently on a keto diet and has lost a significant amount of weight recently. Patient denies of any chance of sexually transmitted disease. No other acute complaints. No acute distress noted. Patient aware of the plan of care. Some parts of this dictation were generated by voice recognition software and may contain typographical and/or grammatical inaccuracies. Related Data Home Medications Medication Instructions Recorded Confirmed alprazolam 0.5 mg PO BID PRN 09/03/19 11/29/20 metoprolol succinate 100 mg PO DAILY 09/03/19 11/29/20 magnesium oxide 400 mg PO DAILY 09/21/20 11/30/20 cholecalciferol (vitamin D3) 25 mcg PO DAILY 11/30/20 11/30/20 diltiazem HCl 120 mg PO DAILY 12/20/20 12/20/20 Allergies Allergy/AdvReac Type Severity Reaction Status Date / Time sulfamethoxazole Allergy Intermediate Hives / Verified 11/29/20 14:06 Red Face trimethoprim Allergy Intermediate Hives / Verified 11/29/20 14:06 Red Face levofloxacin Allergy Hives Verified 11/29/20 17:42 Review of Systems Review of Systems: Narrative: CONSTITUTIONAL: Denies fever, chills, or sweats. EYES: Denies visual changes, redness, or discharge. ENT: Denies rhinorrhea, congestion, sore throat, or otalgia. CARDIOVASCULAR: Denies chest pain, palpitations, or edema. RESPIRATORY: Denies cough or dyspnea. GASTROINTESTINAL: Denies abdominal pain, nausea, vomiting, or diarrhea. GENITOURINARY: Reports of urinary frequency, urgency, dysuria SKIN: Denies rash or itching. MUSCULOSKELETAL: Reports of right-sided low back pain NEUROLOGIC: Denies headache, numbness, or weakness. All other systems reviewed are negative, except as documented in HPI. [facility] Past Medical History Medical History (Updated 12/20/20 @ 13:35 by LEE Meek) Anxiety Asthma Bloody diarrhea Hypertension Lower abdominal pain Nausea and vomiting in adult Pre-diabetes Surgical History Surgical History (Updated 11/29/20 @ 16:48 by Lesly Maldonado PA-C) History of 2 sections History of tubal ligation Family History Family History Other Acute myocardial infarction Breast cancer Social History Social History (Updated 11/29/20 @ 16:49 by Lesly Maldonado PA-C) Social History: The patient lives in [place] with her fiance. 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 No alcohol or illicit substance abuse. She designates her fiance, Brooks Riggs, as her surrogate decision maker and she wishes to be a full code. Alcohol intake: never Substance use type: does not use Spiritual care concerns: No Comments At the time of my signature, I reviewed and agree with the nursing past medical, surgical, social, and family history. There is no relevant family history pertinent to the patient complaint. Exam Narrative: Exam Narrative: GENERAL: This is a well-nourished, well-developed patient, in no apparent distress. HEAD: normocephalic, atraumatic. EYES: PERRL. Sclera clear/white. Vision is grossly intact. EARS: External ears normal NOSE: External nose normal with no obvious nasal discharge, nares without redness, no rhinorrhea. THROAT: Mucous membranes moist NECK: Neck supple CARDIOVASCULAR: Regular rate and
[2020-12-20 13:24] VITALS: BP 139/74; PULSE 74; RESP 16; TEMP 37; O2SAT 98
== END 2020-12-20 13:39 | disposition home or self-care (01) ==
PROVIDERS: Emergency Provider Nurse Practitioner Family; PCP Family Medicine
DX: R35.0 Frequency of micturition (principal)
CPT/HCPCS: 81003; 99212; G0463

== ENCOUNTER → 2021-01-31 00:43 | Outpatient (CLI) | payer BC, SELFPAY ==
[2021-01-31 20:54] LABS: SARS-CoV-2 RNA PCR Negative
== END ==
PROVIDERS: PCP Family Medicine; Visit Provider Internal Medicine Gastroenterology
DX: Z01.812 Encounter for preprocedural laboratory examination (principal); Z20.822 Contact with and (suspected) exposure to COVID-19
CPT/HCPCS: C9803; U0003; U0005

== ENCOUNTER → 2021-02-27 08:00 | Outpatient (CLI) | payer BC, SELFPAY ==
[2021-02-27 19:22] LABS: SARS-CoV-2 RNA PCR Negative
== END ==
PROVIDERS: PCP Family Medicine; Visit Provider Internal Medicine Gastroenterology
DX: Z01.812 Encounter for preprocedural laboratory examination (principal); Z20.822 Contact with and (suspected) exposure to COVID-19
CPT/HCPCS: C9803; U0003; U0005

== ENCOUNTER 2021-03-02 00:05 | Day surgery (SDC) | payer BC, SELFPAY ==
[2020-12-31 13:10] VITALS: BMI 24.9
[2021-01-22 14:11] VITALS: BMI 24.9
[2021-02-18 14:42] VITALS: BMI 24.5
[2021-03-02 11:19] VITALS: BP 143/85; PULSE 92; RESP 16; TEMP 36.7; O2SAT 100; BMI 25.0
[2021-03-02] MEDS: LACTATED RINGERS 1,000 ML 150 ML IV CONT (11:24)
--- NOTE | 2021-03-02 11:31 | WPDANESEPPF ---
Anes - Initial Pre Proc Eval Procedure: Operation Date: 03/02/21 11:45 Proposed Procedures p Colonoscopy - Norm Connolly MD Date/Time: 03/02/21 11:31 Surgeon: Norm Connolly MD Pre Op Diagnosis: colitis Patient Data Age: 45 Gender: F Height: 5 ft 2 in Weight: 62 kg Last Vital Signs Temp 36.7 C 03/02/21 11:19 Pulse 92 03/02/21 11:19 Resp 16 03/02/21 11:19 BP 143/85 H 03/02/21 11:19 Pulse Ox 100 03/02/21 11:19 Allergies Allergy/AdvReac Type Severity Reaction Status Date / Time sulfamethoxazole Allergy Intermediate Hives / Verified 03/02/21 11:16 Red Face trimethoprim Allergy Intermediate Hives / Verified 03/02/21 11:16 Red Face levofloxacin Allergy Hives Verified 03/02/21 11:16 Home Medications Medication Instructions Recorded Confirmed Type alprazolam 0.5 mg PO BID PRN 09/03/19 03/02/21 History cholecalciferol (vitamin D3) 25 mcg PO DAILY 11/30/20 03/02/21 History budesonide-formoterol [Symbicort] 1 inh INHALATION BID 12/31/20 03/02/21 History diazepam 2 mg PO HS PRN 01/22/21 03/02/21 History albuterol sulfate 2 inh INHALATION TID PRN 02/18/21 03/02/21 History cholecalciferol (vitamin D3) 25 mcg PO DAILY 02/18/21 03/02/21 History diltiazem HCl 120 mg PO DAILY 02/18/21 03/02/21 History magnesium oxide 400 mg PO DAILY 02/18/21 03/02/21 History metoprolol succinate 100 mg PO DAILY 02/18/21 03/02/21 History Patient hx anesthesia problems: none Family hx anesthesia problems: none PMFSH Past Medical History Medical History Anxiety Asthma Bloody diarrhea Hypertension Lower abdominal pain Nausea and vomiting in adult Pre-diabetes Surgical History Surgical History History of 2 sections History of tubal ligation Family History Family History Other Acute myocardial infarction Breast cancer Social History Social History Social History: The patient lives in [place] with her fiance. 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 No alcohol or illicit substance abuse. She designates her fiance, Brooks Riggs, as her surrogate decision maker and she wishes to be a full code. Years smoked: 9 Smoking status: Former smoker Tobacco type: cigarettes Alcohol intake: never Substance use type: does not use Living arrangements: with family Gender identity (if verbalized by the patient): Female Spiritual care concerns: No Anes - Eval Final PreProcedure Day of Procedure 03/02/21 11:31 Patient weight: normal Heart: regular rate and rhythm Lungs: clear to auscultation Airway: Mallampati scale class 1 Neurological: alert and oriented Last oral intake: >/= 8 hours ASA classification: II Emergent: no Anesthetic plan: proceed Anesthesia type and monitoring: general GIVS and standard monitoring Informed Consent: The patient's anesthetic plan and its attendant risks and benefits were discussed with the patient/family/POA. Questions were solicited and answers provided to the satisfaction of the patient/family/POA.
--- NOTE | 2021-03-02 11:59 | PM.HPGS ---
History of Present Illness History of Present Illness Consent: Risks, benefits, and alternatives have been discussed and questions answered. Patient agrees to proceed with procedure. Chief complaint: colitis Narrative: Noelle Jordan is a 45 year old female admitted with colitis 11/2020, now asymptomatic but never had colonoscopy Review of Systems Constitutional: Constitutional: Denies headache(s) and Denies weakness Eyes: Eyes: Denies blurry vision ENT: Reports Normal hearing present, Denies headache(s) and Denies neck pain Cardiovascular: Cardiovascular: Denies chest pain and Denies dyspnea Respiratory: Respiratory: Denies dyspnea Gastrointestinal: Gastrointestinal: Reports no additional gastrointestinal complaints Genitourinary: Genitourinary: Denies dysuria Musculoskeletal: Musculoskeletal: Denies neck pain Integumentary/Breasts: Skin/Breast: Denies dry skin Neurologic: Reports Normal hearing present, Denies headache(s) and Denies weakness Psychiatric: Psychiatric: Denies anxiety Endocrine: Endocrine: Denies change in body appearance Hematologic/Lymphatic: Hematologic/Lymphatic: Denies easy bleeding Allergic/Immunologic: Allergic/Immunologic: Denies urticaria PMFSH Past Medical History Medical History Anxiety Asthma Bloody diarrhea Hypertension Lower abdominal pain Nausea and vomiting in adult Pre-diabetes Surgical History Surgical History History of 2 sections History of tubal ligation Family History Family History Other Acute myocardial infarction Breast cancer Social History Social History Social History: The patient lives in [place] with her fiance. 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 No alcohol or illicit substance abuse. She designates her fiance, Brooks Riggs, as her surrogate decision maker and she wishes to be a full code. Years smoked: 9 Smoking status: Former smoker Tobacco type: cigarettes Alcohol intake: never Substance use type: does not use Living arrangements: with family Gender identity (if verbalized by the patient): Female Spiritual care concerns: No Meds Home Medications and Allergies Home Medications Medication Instructions Recorded Confirmed Type alprazolam 0.5 mg PO BID PRN 09/03/19 03/02/21 History cholecalciferol (vitamin D3) 25 mcg PO DAILY 11/30/20 03/02/21 History budesonide-formoterol [Symbicort] 1 inh INHALATION BID 12/31/20 03/02/21 History diazepam 2 mg PO HS PRN 01/22/21 03/02/21 History albuterol sulfate 2 inh INHALATION TID PRN 02/18/21 03/02/21 History cholecalciferol (vitamin D3) 25 mcg PO DAILY 02/18/21 03/02/21 History diltiazem HCl 120 mg PO DAILY 02/18/21 03/02/21 History magnesium oxide 400 mg PO DAILY 02/18/21 03/02/21 History metoprolol succinate 100 mg PO DAILY 02/18/21 03/02/21 History Allergies Allergy/AdvReac Type Severity Reaction Status Date / Time sulfamethoxazole Allergy Intermediate Hives / Verified 03/02/21 11:16 Red Face trimethoprim Allergy Intermediate Hives / Verified 03/02/21 11:16 Red Face levofloxacin Allergy Hives Verified 03/02/21 11:16 Vital Signs Vital Signs - 24 hr 03/02/21 11:19 Temperature 98.1 F Pulse Rate 92 Respiratory Rate 16 Blood Pressure 143/85 H Pulse Oximetry 100 Exam Const: General: comfortable and no acute distress HENMT: General nose exam: Normal nares present Eyes: General: appearance normal, both eyes and all related structures Neck: Neck: no JVD Resp: Auscultation: clear to auscultation bilaterally Cardio: Rate: regular rate Rhythm: regular rhythm GI: Inspection: non-distended GI Palp: Yes Soft to palpation Skin: General skin exam: normal color Neuro:
[2021-03-02 12:22] VITALS: BP 116/63; PULSE 80; RESP 20; O2SAT 98
[2021-03-02 12:32] VITALS: BP 126/77; PULSE 76; RESP 22; O2SAT 99
[2021-03-02 12:42] VITALS: BP 133/81; PULSE 77; RESP 20; O2SAT 97
== END 2021-03-02 12:52 | disposition home or self-care (01) ==
PROVIDERS: PCP Family Medicine; Visit Provider Internal Medicine Gastroenterology
PROC: 0DJD8ZZ Inspection of Lower Intestinal Tract, Via Natural or Artificial Opening Endoscopic (ICD-10-PCS; CPT 45378; principal; 2021-03-02 11:45)
DX: K52.9 Noninfective gastroenteritis and colitis, unspecified (principal); K57.30 Diverticulosis of large intestine without perforation or abscess without bleeding; I10 Essential (primary) hypertension; R73.03 Prediabetes; F41.9 Anxiety disorder, unspecified; Z87.891 Personal history of nicotine dependence
CPT/HCPCS: 45378; J2704; J7120

== ENCOUNTER 2021-08-20 10:18 | Outpatient (CLI) | payer BC, SELFPAY ==
--- NOTE | ~2021-08-20 | MR_ITS ---
EXAMINATION: MR pituitary wo/w con EXAM DATE: 08/20/2021 12:02 INDICATION: Hyperprolactinemia. TECHNIQUE: Magnetic resonance imaging (MRI) of the brain/brain stem obtained without contrast. Sagit alin T1, axial diffusion, gradient echo (T2*), T1, T2, FLAIR sequences obtained. Patient was then inj ected with 12 cc intravenous Multihance contrast. Axial and coronal postcontrast T1 weighted sequence s obtained. A pituitary protocol was utilized including dynamic imaging through the pituitary gland d uring intravenous injection of contrast. No prior study for comparison. FINDINGS: Mild motion on the dynamic imaging causing some sensitivity limitations. The pituitary glan d is confined to the sella turcica. Suprasellar region normal in appearance. The optic chiasm lulú l. Infundibulum is midline. No definite pituitary microadenoma identified. Please note small micro adenomas can cause endocrine abnormalities but are not always identified by imaging even using dedica lefty pituitary protocol. This does exclude macroadenoma or need for surgical management. There are no areas of restricted diffusion to suggest acute infarction. There is no acute hemorrhage seen on the T2*, a hemosiderin sensitive sequence. No intraparenchymal brain mass. The ventricles a re normal in size. There are no extra-axial collections. Flow voids are seen in the cerebral arteri es on the T2-weighted sequences consistent with their expected patency. The orbits are unremarkable. Soft tissue is unremarkable. There are no areas of abnormal enhancement on the post contrast imag es. IMPRESSION: Unremarkable MR brain/pituitary exam. Reviewed, dictated and finalized at location A. [facility]
[2021-08-20 11:20] LABS: Estimated Glomerular Filt Rate > 60
== END 2021-08-20 10:19 | disposition home or self-care (01) ==
PROVIDERS: PCP Family Medicine; Visit Provider Obstetrics & Gynecology
DX: E22.1 Hyperprolactinemia (principal)
CPT/HCPCS: 70553; A9577

== ENCOUNTER 2021-09-04 16:15 | Emergency (ER) | payer BC, SELFPAY ==
[2021-09-04 16:26] VITALS: BP 124/73; PULSE 72; RESP 18; TEMP 37.2; O2SAT 100
--- NOTE | 2021-09-04 16:29 | ED.GENADULT ---
HPI - General Adult General Chief complaint: Urogenital-Female Stated complaint: uti Time Seen by Provider: 09/04/21 16:29 Source: patient Limitations: no limitations History of Present Illness HPI narrative: 46-year-old female patient presents to the [facility] with complaints of urinary frequency, and burning with urination. Patient states that started yesterday and today has gotten worse with low back pain, lower abdominal pain. Denies any nausea, vomiting or diarrhea. Denies any fevers, body aches or chills. Patient states she gets these almost monthly at this time. Patient states she has been seeing a [facility] to follow-up with these issues. Related Data Home Medications Medication Instructions Recorded Confirmed alprazolam 0.5 mg PO BID PRN 09/03/19 03/02/21 cholecalciferol (vitamin D3) 25 mcg PO DAILY 11/30/20 03/02/21 budesonide-formoterol [Symbicort] 1 inh INHALATION BID 12/31/20 03/02/21 diazepam 2 mg PO HS PRN 01/22/21 03/02/21 albuterol sulfate 2 inh INHALATION TID PRN 02/18/21 03/02/21 cholecalciferol (vitamin D3) 25 mcg PO DAILY 02/18/21 03/02/21 diltiazem HCl 120 mg PO DAILY 02/18/21 03/02/21 magnesium oxide 400 mg PO DAILY 02/18/21 03/02/21 metoprolol succinate 100 mg PO DAILY 02/18/21 03/02/21 Allergies Allergy/AdvReac Type Severity Reaction Status Date / Time sulfamethoxazole Allergy Intermediate Hives / Verified 03/02/21 11:16 Red Face trimethoprim Allergy Intermediate Hives / Verified 03/02/21 11:16 Red Face levofloxacin Allergy Hives Verified 03/02/21 11:16 Review of Systems Review of Systems: CONSTITUTIONAL: Denies fever, chills, or sweats. EYES: Denies visual changes, redness, or discharge. ENT: Denies rhinorrhea, congestion, sore throat, or otalgia. CARDIOVASCULAR: Denies chest pain, palpitations, or edema. RESPIRATORY: Denies cough or dyspnea. GASTROINTESTINAL: Denies abdominal pain, nausea, vomiting, or diarrhea. GENITOURINARY: Positive dysuria or hematuria. SKIN: Denies rash or itching. MUSCULOSKELETAL: Denies back pain, joint pain, or myalgia. NEUROLOGIC: Denies headache, numbness, or weakness. PSYCHIATRIC: Denies anxiety or depression. [facility] Past Medical History Medical History Anxiety Asthma Bloody diarrhea Hypertension Lower abdominal pain Nausea and vomiting in adult Pre-diabetes Surgical History Surgical History History of 2 sections History of tubal ligation Family History Family History Other Acute myocardial infarction Breast cancer Social History Social History Social History: The patient lives in [place] with her fiance. 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 No alcohol or illicit substance abuse. She designates her fiance, Brooks Riggs, as her surrogate decision maker and she wishes to be a full code. Years smoked: 9 Smoking status: Former smoker Tobacco type: cigarettes Alcohol intake: never Substance use type: does not use Gender identity (if verbalized by the patient): Female Spiritual care concerns: No Comments At the time of my signature I agree with nursing past medical history, surgical, social, and family history. There is no relevant family history pertinent to the presenting complaint. Exam Narrative: GENERAL: Well-appearing, well-nourished, and in no acute distress. HEAD: Normocephalic, atraumatic. EYES: PERRLA and EOMI. ENT: Nares clear, no rhinorrhea or epistaxis. Mucous membranes moist. NECK: Supple. No lymphadenopathy CHEST: Clear to auscultation. No respiratory distress. HEART: Regular rate and rhythm. No murmur heard. Normal peripheral pulses. ABDOMEN: Soft, nontender, nondistended, normal active bowel sounds. No CVA tenderness on percuss
== END 2021-09-04 17:09 | disposition home or self-care (01) ==
PROVIDERS: Emergency Provider Nurse Practitioner Family; PCP Family Medicine
DX: N30.00 Acute cystitis without hematuria (principal); Z87.891 Personal history of nicotine dependence; J45.909 Unspecified asthma, uncomplicated; I10 Essential (primary) hypertension; R73.03 Prediabetes; F41.9 Anxiety disorder, unspecified
CPT/HCPCS: 81003; 87086; 99213; G0463

== ENCOUNTER 2022-01-02 13:36 | Emergency (ER) | payer OTHER, SELFPAY ==
--- NOTE | ~2022-01-02 | XR_ITS ---
EXAMINATION: XR wrist LT min 3V DATE: 01/02/2022 14:16 INDICATION: Left wrist pain post fall TECHNIQUE: Posteroanterior, ulnar deviation, oblique, and lateral views of the left wrist were obtain ed. COMPARISON: 11/07/2010 FINDINGS: Alignment is normal. No fracture. Joint spaces are normal. Soft tissues are unremarkable. IMPRESSION: 1. Negative left wrist radiographs. Reviewed, dictated and finalized at location A.
--- NOTE | ~2022-01-02 | XR_ITS ---
EXAMINATION: XR foot RT 2V DATE: 01/02/2022 14:16 INDICATION: Right great toe pain TECHNIQUE: Dorsoplantar and lateral views of the right foot were obtained. COMPARISON: None. FINDINGS: Bone alignment is normal. No fracture. Joint spaces are normal. Soft tissues are unremarkable. IMPRESSION: 1. Negative right foot radiographs. Reviewed, dictated and finalized at location A.
[2022-01-02 13:46] VITALS: BP 116/64; PULSE 68; RESP 16; TEMP 36.6; O2SAT 99
[2022-01-02 13:51] VITALS: BP 116/64; PULSE 68; RESP 16; TEMP 36.6; O2SAT 99
--- NOTE | 2022-01-02 13:56 | ED.GENADULT ---
HPI - General Adult General Chief complaint: Extremity Injury, Upper Stated complaint: right 1digit toe/left wrist injury Time Seen by Provider: 01/02/22 13:56 Source: patient Mode of arrival: ambulatory Limitations: no limitations History of Present Illness HPI narrative: 46-year-old female presents with complaint of left wrist pain for 1 week. States that she was skating and fell forward and put hands out to catch herself, causing left wrist to hyperextend. Has been taking [id number] medications to treat pain with no relief of pain. She did not any type of splint or Elijah wrap. Range of motion and distal neurovascular intact to left wrist. She also reports pain to right great toe for 6 months. No injury. all Systems reviewed and negative except as noted above. Related Data Home Medications Medication Instructions Recorded Confirmed alprazolam 0.5 mg PO BID PRN 09/03/19 03/02/21 cholecalciferol (vitamin D3) 25 mcg PO DAILY 11/30/20 03/02/21 budesonide-formoterol [Symbicort] 1 inh INHALATION BID 12/31/20 03/02/21 diazepam 2 mg PO HS PRN 01/22/21 03/02/21 albuterol sulfate 2 inh INHALATION TID PRN 02/18/21 03/02/21 diltiazem HCl 120 mg PO DAILY 02/18/21 03/02/21 magnesium oxide 400 mg PO DAILY 02/18/21 03/02/21 metoprolol succinate 100 mg PO DAILY 02/18/21 03/02/21 cabergoline mg 01/02/22 Allergies Allergy/AdvReac Type Severity Reaction Status Date / Time sulfamethoxazole Allergy Intermediate Hives / Verified 03/02/21 11:16 Red Face trimethoprim Allergy Intermediate Hives / Verified 03/02/21 11:16 Red Face levofloxacin Allergy Hives Verified 03/02/21 11:16 Review of Systems Review of Systems: CONSTITUTIONAL: Denies fever, chills, or sweats. EYES: Denies visual changes, redness, or discharge. ENT: Denies rhinorrhea, congestion, sore throat, or otalgia. CARDIOVASCULAR: Denies chest pain, palpitations, or edema. RESPIRATORY: Denies cough or dyspnea. GASTROINTESTINAL: Denies abdominal pain, nausea, vomiting, or diarrhea. GENITOURINARY: Denies dysuria or hematuria. SKIN: Denies rash or itching. MUSCULOSKELETAL: Denies back pain, joint pain, or myalgia. Reports left wrist pain and right great toe pain. NEUROLOGIC: Denies headache, numbness, or weakness. PSYCHIATRIC: Denies anxiety or depression. All other systems reviewed are negative, except as documented in HPI. [facility] Past Medical History Medical History Anxiety Asthma Bloody diarrhea Hypertension Lower abdominal pain Nausea and vomiting in adult Pre-diabetes Surgical History Surgical History History of 2 sections History of tubal ligation Family History Family History Other Acute myocardial infarction Breast cancer Social History Social History Social History: The patient lives in [place] with her fiance. 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 No alcohol or illicit substance abuse. She designates her fiance, Brooks Riggs, as her surrogate decision maker and she wishes to be a full code. Years smoked: 9 Smoking status: Former smoker Tobacco type: cigarettes Alcohol intake: never Substance use type: does not use Gender identity (if verbalized by the patient): Female Spiritual care concerns: No Comments At time of signature, agree with nursing past medical, surgical, social and family history. There is no relevant family history pertinent to the presenting complaint. Exam Narrative: GENERAL: This is a well-nourished, well-developed patient, in no apparent distress. HEAD: normocephalic, atraumatic. EYES: PERRL. Sclera clear/white. Vision is grossly intact. EARS: External ears normal NOSE: External nose normal THROAT: Mucous membranes moist N
== END 2022-01-02 14:36 | disposition home or self-care (01) ==
PROVIDERS: Emergency Provider Nurse Practitioner Family; PCP Family Medicine
DX: M25.532 Pain in left wrist (principal); M79.674 Pain in right toe(s); Z87.891 Personal history of nicotine dependence; J45.909 Unspecified asthma, uncomplicated; I10 Essential (primary) hypertension; R73.03 Prediabetes; F41.9 Anxiety disorder, unspecified
CPT/HCPCS: 73110; 73620; 99214; G0463

== ENCOUNTER 2022-01-09 14:45 | Emergency (ER) | payer OTHER, SELFPAY ==
[2022-01-09 14:54] VITALS: BP 112/53; PULSE 65; RESP 18; TEMP 36.8; O2SAT 99
--- NOTE | 2022-01-09 14:56 | ED.FEMALEGU ---
HPI - Female Genitourinary General Chief complaint: Urogenital-Female Stated complaint: UTI Time Seen by Provider: 01/09/22 15:05 Source: patient, RN notes reviewed and old records reviewed Mode of arrival: ambulatory Limitations: no limitations History of Present Illness HPI Narrative: 46-year-old female presents to the [facility] with complaints of urgency frequency and intermittent burning vaginal area. Also reports thick patient to follow-up in 2-3 days with primary care provider. States that she has a yeast infection, been using [id number] products with minimal to no relief. Denies any chance of STDs or concern for . MD elicited complaint: UTI and vaginal discharge Related Data Home Medications Medication Instructions Recorded Confirmed miconazole-skin [Monistat ea 01/09/22 7 cream, appl, wipes] Allergies Allergy/AdvReac Type Severity Reaction Status Date / Time sulfamethoxazole Allergy Intermediate Hives / Verified 03/02/21 11:16 Red Face trimethoprim Allergy Intermediate Hives / Verified 03/02/21 11:16 Red Face levofloxacin Allergy Hives Verified 03/02/21 11:16 Review of Systems Review of Systems: All systems reviewed & are unremarkable except as noted in HPI and below Constitutional: Constitutional: Reports no additional constitutional complaints, Denies chills and Denies fatigue Eyes: Eyes: Reports no additional eye complaints ENT: Reports system reviewed and no additional complaints, except as documented Cardiovascular: Cardiovascular: Reports no additional cardiovascular complaints and Denies chest pain Respiratory: Respiratory: Reports no additional respiratory complaints, Denies cough and Denies dyspnea Gastrointestinal: Gastrointestinal: Reports no additional gastrointestinal complaints, Denies abdominal pain, Denies diarrhea, Denies nausea and Denies vomiting Genitourinary: Genitourinary: Reports as per HPI, Denies hematuria, Reports nocturia, Denies genital lesions, Reports dysuria, Denies pelvic pain, Denies flank pain and Reports vaginal discharge Musculoskeletal: Musculoskeletal: Reports no additional musculoskeletal complaints and Denies back pain Integumentary/Breasts: Skin/Breast: Reports system reviewed and no additional complaints, except as docu Neurologic: Reports system reviewed and no additional complaints, except as documented Psychiatric: Psychiatric: Reports no additional psychiatric complaints Endocrine: Endocrine: Denies fatigue Allergic/Immunologic: Allergic/Immunologic: Reports no additional allergic/immunologic complaints PMFSH Past Medical History Medical History Anxiety Asthma Bloody diarrhea Hypertension Lower abdominal pain Nausea and vomiting in adult Pre-diabetes Surgical History Surgical History History of 2 sections History of tubal ligation Family History Family History Other Acute myocardial infarction Breast cancer Social History Social History Social History: The patient lives in [place] with her fiance. 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 No alcohol or illicit substance abuse. She designates her fiance, Brooks Riggs, as her surrogate decision maker and she wishes to be a full code. Years smoked: 9 Smoking status: Former smoker Tobacco type: cigarettes Alcohol intake: never Substance use type: does not use Gender identity (if verbalized by the patient): Female Spiritual care concerns: No Comments At the time of my signature, I reviewed and agree with the nursing past medical, surgical, social, and family history. There is no relevant family history pertinent to the patient complaint. Exam Const: General
== END 2022-01-09 15:19 | disposition home or self-care (01) ==
PROVIDERS: Emergency Provider Nurse Practitioner; PCP Family Medicine
DX: B37.3 Candidiasis of vulva and vagina (principal); Z87.891 Personal history of nicotine dependence; J45.909 Unspecified asthma, uncomplicated; I10 Essential (primary) hypertension; R73.03 Prediabetes
CPT/HCPCS: 81003; 99213; G0463

== ENCOUNTER 2022-03-15 11:49 | Emergency (ER) | payer OTHER, SELFPAY ==
--- NOTE | ~2022-03-15 | XR_ITS ---
[[id number] ] INDICATION: Cough with left rib pain TECHNIQUE: Frontal projection of the upper left ribs, frontal projection of the lower left ribs, obli que projection of all the left ribs, frontal inspiratory chest x-ray for interpretation. FINDINGS: There are no displaced rib fractures identified. There are no soft tissue abnormality see n. The lungs are clear. IMPRESSION: 1:No acute displaced rib fractures. Reviewed, dictated and finalized at location B.
[2022-03-15 11:59] VITALS: BP 119/62; PULSE 91; RESP 18; TEMP 37.3; O2SAT 98
--- NOTE | 2022-03-15 12:31 | ED.BACK ---
HPI - Back Pain/Injury General Chief Complaint: Back Pain/Injury Stated Complaint: Back Pain Time Seen by Provider: 03/15/22 12:32 Source: patient, family and RN notes reviewed Mode of arrival: ambulatory Limitations: no limitations History of Present Illness HPI Narrative: 46-year-old female presents to the [facility] with complaints of back pain for 2 days. Denies any injury. No swelling noted. No bruising noted. Denies any heavy lifting pushing or pulling. States she has been coughing a lot. States she cannot get comfortable. Denies any saddle anesthesia. No loss or retention of bowel or bladder. No midline tenderness. No numbness or tingling in extremities. MD elicited complaint: back pain Related Data Home Medications Medication Instructions Recorded Confirmed alprazolam 0.5 mg tablet 1 tablet PO DAILY 03/15/22 03/15/22 diazepam 2 mg tablet 1 tablet PO DAILY 03/15/22 03/15/22 pantoprazole 40 mg tablet,delayed 1 tablet PO DAILY 03/15/22 03/15/22 release Allergies Allergy/AdvReac Type Severity Reaction Status Date / Time sulfamethoxazole Allergy Intermediate Hives / Verified 03/15/22 12:41 Red Face trimethoprim Allergy Intermediate Hives / Verified 03/15/22 12:41 Red Face levofloxacin Allergy Hives Verified 03/15/22 12:41 Review of Systems Review of Systems: All systems reviewed & are unremarkable except as noted in HPI and below Constitutional: Constitutional: Reports no additional constitutional complaints and Denies weakness Eyes: Eyes: Reports no additional eye complaints ENT: Reports system reviewed and no additional complaints, except as documented Cardiovascular: Cardiovascular: Reports no additional cardiovascular complaints and Denies chest pain Respiratory: Respiratory: Reports no additional respiratory complaints Gastrointestinal: Gastrointestinal: Reports no additional gastrointestinal complaints and Denies abdominal pain Musculoskeletal: Musculoskeletal: Reports as per HPI, Reports back pain, Denies arthralgias, Denies joint swelling and Denies numbness Integumentary/Breasts: Skin/Breast: Reports system reviewed and no additional complaints, except as docu Neurologic: Reports system reviewed and no additional complaints, except as documented, Denies focal weakness, Denies numbness and Denies weakness Psychiatric: Psychiatric: Reports no additional psychiatric complaints Allergic/Immunologic: Allergic/Immunologic: Reports no additional allergic/immunologic complaints PMFSH Past Medical History Medical History Anxiety Asthma Bloody diarrhea Hypertension Lower abdominal pain Nausea and vomiting in adult Pre-diabetes Surgical History Surgical History History of 2 sections History of tubal ligation Family History Family History Other Acute myocardial infarction Breast cancer Social History Social History Social History: The patient lives in [place] with her fiance. 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 No alcohol or illicit substance abuse. She designates her fiance, Brooks Riggs, as her surrogate decision maker and she wishes to be a full code. Years smoked: 9 Smoking status: Former smoker Tobacco type: cigarettes Alcohol intake: never Substance use type: does not use Gender identity (if verbalized by the patient): Female Spiritual care concerns: No Comments At the time of my signature, I reviewed and agree with the nursing past medical, surgical, social, and family history. There is no relevant family history pertinent to the patient complaint. Exam Const: General: healthy appearing, no acute distress and alert Nutritional Appearance: well nourished Orientation
== END 2022-03-15 13:15 | disposition home or self-care (01) ==
PROVIDERS: Emergency Provider Nurse Practitioner; PCP Family Medicine
DX: M54.6 Pain in thoracic spine (principal); Z87.891 Personal history of nicotine dependence; J45.909 Unspecified asthma, uncomplicated; R73.03 Prediabetes; I10 Essential (primary) hypertension
CPT/HCPCS: 71101; 99213; G0463

== ENCOUNTER 2022-06-06 16:30 | Emergency (ER) | payer OTHER, SELFPAY ==
[2022-06-06 16:43] VITALS: BP 133/69; PULSE 88; RESP 16; TEMP 36.5; O2SAT 99
[2022-06-06 16:45] VITALS: BP 133/69; PULSE 88; RESP 16; TEMP 36.5; O2SAT 99
--- NOTE | 2022-06-06 16:56 | ED.FEMALEGU ---
HPI - Female Genitourinary General Chief complaint: Urogenital-Female Stated complaint: bladder infection Source: patient Mode of arrival: ambulatory Limitations: no limitations History of Present Illness HPI Narrative: 46-year-old female presents to urgent care with complaints of urinary frequency, urgency, pain and burning since yesterday. Patient has been taking [id number] Azo with minimal relief. 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 Patient denies fever, abdominal pain, flank pain, vaginal discharge or concern for STDs. MD elicited complaint: dysuria and UTI Onset (ago): day(s) (1) Vaginal discharge: none Vaginal bleeding: none Urinary symptoms: Dysuria, Urgency and Frequency Associated symptoms: denies other symptoms Treatment prior to arrival: other (OTC Azo ) Patient : No Related Data Home Medications Medication Instructions Recorded Confirmed alprazolam 0.5 mg tablet 1 tablet PO DAILY 03/15/22 06/06/22 diazepam 2 mg tablet 1 tablet PO DAILY 03/15/22 06/06/22 pantoprazole 40 mg tablet,delayed 1 tablet PO DAILY 03/15/22 06/06/22 release albuterol sulfate 90 mcg/actuation 2 puff inhalation QID PRN SOB 06/06/22 06/06/22 aerosol inhaler (ProAir HFA) Allergies Allergy/AdvReac Type Severity Reaction Status Date / Time sulfamethoxazole Allergy Intermediate Hives / Verified 06/06/22 16:40 Red Face trimethoprim Allergy Intermediate Hives / Verified 06/06/22 16:40 Red Face levofloxacin Allergy Hives Verified 06/06/22 16:40 Review of Systems Constitutional: Constitutional: Denies chills and Denies fatigue ENT: Denies dysphagia, Denies vertigo and Denies dizziness Cardiovascular: Cardiovascular: Denies chest pain, Denies rapid heart rate and Denies radiating jaw, neck or arm pain Respiratory: Respiratory: Denies chest congestion, Denies cough, Denies dyspnea and Denies wheezing Gastrointestinal: Gastrointestinal: Denies abdominal pain, Denies diarrhea, Denies nausea and Denies vomiting Genitourinary: Genitourinary: Denies abnormal vaginal bleeding, Denies hematuria, Reports nocturia, Denies genital lesions, Reports dysuria, Denies flank pain and Denies urinary incontinence Integumentary/Breasts: Skin/Breast: Denies rash Neurologic: Denies dizziness Endocrine: Endocrine: Denies fatigue PMFSH Past Medical History Medical History Anxiety Asthma Bloody diarrhea Hypertension Lower abdominal pain Nausea and vomiting in adult Pre-diabetes Surgical History Surgical History History of 2 sections History of tubal ligation Family History Family History Other Acute myocardial infarction Breast cancer Social History Social History Social History: The patient lives in [place] with her fiance. 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 No alcohol or illicit substance abuse. She designates her fiance, Brooks Riggs, as her surrogate decision maker and she wishes to be a full code. Years smoked: 9 Smoking status: Former smoker Tobacco type: cigarettes Alcohol intake: never Substance use type: does not use Gender identity (if verbalized by the patient): Female Spiritual care concerns: No Comments At time of signature, I agree with nursing past medical, surgical, social and family history. There is no relevant family history pertinent to the presenting complaint. Exam Const: General: healthy appearing Nutritional Appearance: well nourished Orientation/consciousness: patient oriented x3 Limitations: no limitations Neck: Neck: normal visual inspection Resp: Effort & Inspection:
== END 2022-06-06 17:08 | disposition home or self-care (01) ==
PROVIDERS: Emergency Provider Nurse Practitioner Family; PCP Family Medicine
DX: R30.0 Dysuria (principal); Z87.891 Personal history of nicotine dependence; J45.909 Unspecified asthma, uncomplicated; I10 Essential (primary) hypertension; R73.03 Prediabetes; F41.9 Anxiety disorder, unspecified
CPT/HCPCS: 87077; 87086; 87186; 99213; G0463

== ENCOUNTER 2022-07-17 16:05 | Emergency (ER) | payer OTHER, SELFPAY ==
[2022-07-17 16:13] VITALS: BP 145/86; PULSE 97; RESP 16; TEMP 36.2; O2SAT 99
--- NOTE | 2022-07-17 16:14 | ED.FEMALEGU ---
HPI - Female Genitourinary General Chief complaint: Urogenital-Female Stated complaint: vaginal inflammation Time Seen by Provider: 07/17/22 16:32 Source: patient and RN notes reviewed Mode of arrival: ambulatory Limitations: no limitations History of Present Illness HPI Narrative: 47 y/o female presented for c/o vaginal irritation for 3 days. Endorses extreme burning sensation to the right inner labia, painful to walk, sit, urinate, or use toilet tissue. State she started with itching about 3 days ago, following course of antibiotics for UTI. Has used vagisil cream for 3 days and itching improved but pain persisted. Denies vaginal discharge, urinary frequency, hematuria, abdominal pain, flank pain, n/v/d/f/c. Endorses her partner may not have been monogamous and is concerned for STD. States LMP was 'spotting' at the beginning of the year. Following with urology for recurrent UTI. Related Data Home Medications Medication Instructions Recorded Confirmed alprazolam 0.5 mg tablet 1 tablet PO DAILY 03/15/22 06/06/22 diazepam 2 mg tablet 1 tablet PO DAILY 03/15/22 06/06/22 pantoprazole 40 mg tablet,delayed 1 tablet PO DAILY 03/15/22 06/06/22 release albuterol sulfate 90 mcg/actuation 2 puff inhalation QID PRN SOB 06/06/22 06/06/22 aerosol inhaler (ProAir HFA) Allergies Allergy/AdvReac Type Severity Reaction Status Date / Time sulfamethoxazole Allergy Intermediate Hives / Verified 07/17/22 16:08 Red Face trimethoprim Allergy Intermediate Hives / Verified 07/17/22 16:08 Red Face levofloxacin Allergy Hives Verified 07/17/22 16:08 Review of Systems Review of Systems: CONSTITUTIONAL: Denies body aches, fever, chills, or sweats. CARDIOVASCULAR: Denies chest pain, palpitations, or edema. RESPIRATORY: Denies cough or dyspnea. GASTROINTESTINAL: Denies abdominal pain, nausea, vomiting, or diarrhea. GENITOURINARY: Reports dysuria, vaginal pain denies frequency, urgency, hematuria, flank pain SKIN: Denies rash or wounds. MUSCULOSKELETAL: Denies back pain or myalgia. [facility] Past Medical History Medical History Anxiety Asthma Bloody diarrhea Hypertension Lower abdominal pain Nausea and vomiting in adult Pre-diabetes Surgical History Surgical History History of 2 sections History of tubal ligation Family History Family History Other Acute myocardial infarction Breast cancer Social History Social History Social History: The patient lives in [place] with her fiance. 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 No alcohol or illicit substance abuse. She designates her fiance, Brooks Riggs, as her surrogate decision maker and she wishes to be a full code. Years smoked: 9 Smoking status: Former smoker Tobacco type: cigarettes Alcohol intake: never Substance use type: does not use Gender identity (if verbalized by the patient): Female Spiritual care concerns: No Comments At time of signature, I have reviewed and agree with nursing past medical, surgical, social and family history unless otherwise noted. Please see nursing chart for further information. There is no relevant family history pertinent to the presenting complaint Exam Narrative: GENERAL: Well-appearing ENT: Mucous membranes pink and moist. CHEST: Clear to auscultation. HEART: Regular rate and rhythm. ABDOMEN: Soft, nontender, nondistended, normal active bowel sounds. No CVA tenderness : Speculum Exam - Right inner labia with approx 0.5cm irregular erythematous vesicular cluster c/w HSV, tender; normal vaginal introitus, pink with small amount white/yellow discharge, no bleeding noted. No swelling. Nontender. Normal appearance of the cervix, closed
[2022-07-17 16:15] VITALS: BP 145/86; PULSE 97; RESP 16; TEMP 36.2; O2SAT 99
--- NOTE | 2022-07-17 16:45 | PC.NURSE ---
1640 pelvic exam done by market research manager with rn at bedside. swabs obtained for gc/chlam. , trich., herpes, bv, and yeast. 1644 in br to obtain ua for ua and bedside preg. test.
== END 2022-07-17 17:12 | disposition home or self-care (01) ==
PROVIDERS: Emergency Provider Nurse Practitioner Family; PCP Family Medicine
DX: N89.8 Other specified noninflammatory disorders of vagina (principal); Z87.891 Personal history of nicotine dependence; J45.909 Unspecified asthma, uncomplicated; I10 Essential (primary) hypertension; R73.03 Prediabetes; F41.9 Anxiety disorder, unspecified
CPT/HCPCS: 81003; 81025; 87070; 87255; 87491; 87591; 87661; 99214; G0463

== ENCOUNTER 2022-08-10 15:09 | Outpatient (CLI) | payer OTHER, SELFPAY ==
--- NOTE | ~2022-08-10 | US_ITS ---
EXAMINATION: US renal BI DATE: 08/10/2022 15:38 INDICATION: Recurrent urinary tract infection TECHNIQUE: Multiple ultrasound grayscale images of the kidneys were obtained. COMPARISON: None. FINDINGS: The right kidney measures 10.6 x 4.7 x 5.4 cm. The left kidney measures 11.7 x 4.6 x 5.8 cm. The kidn eys demonstrate normal echogenicity. There is no hydronephrosis in either kidney. No stones identifi ed. The bladder is normal. IMPRESSION: 1. Normal kidneys without hydronephrosis. Reviewed, dictated and finalized at location B.
== END 2022-08-10 15:10 | disposition home or self-care (01) ==
PROVIDERS: PCP Family Medicine; Visit Provider Nurse Practitioner
DX: N39.0 Urinary tract infection, site not specified (principal)
CPT/HCPCS: 76775

== ENCOUNTER 2022-10-24 10:33 | Emergency (ER) | payer OTHER, SELFPAY ==
[2022-10-24 11:39] VITALS: BP 143/81; PULSE 86; RESP 16; TEMP 37.2; O2SAT 99
[2022-10-24 11:41] VITALS: BP 143/81; PULSE 86; RESP 16; TEMP 37.2; O2SAT 99
--- NOTE | 2022-10-24 12:28 | ED.GENADULT ---
HPI - General Adult General Chief complaint: Unspecified Stated complaint: tongue pain Source: patient Mode of arrival: ambulatory Limitations: no limitations History of Present Illness HPI narrative: 47-year-old female presents to [facility] with complaints of pain to bilateral sides of her tongue for the past week. Patient reports that symptoms started after she completed a round of Augmentin and steroids. Patient reports that she called her primary care provider back today and prescribed nystatin which she has been using for the past 3-4 days but does not feel like it is helping. Patient denies swelling, open wound, fever, body aches, chills, nausea, vomiting or diarrhea Onset (ago): week(s) (1) Relieving factors: none Exacerbating factors: none Associated symptoms: denies other symptoms Related Data Home Medications Medication Instructions Recorded Confirmed alprazolam 0.5 mg tablet 1 tablet PO DAILY 03/15/22 06/06/22 diazepam 2 mg tablet 1 tablet PO DAILY 03/15/22 06/06/22 pantoprazole 40 mg tablet,delayed 1 tablet PO DAILY 03/15/22 06/06/22 release albuterol sulfate 90 mcg/actuation 2 puff inhalation QID PRN SOB 06/06/22 06/06/22 aerosol inhaler (ProAir HFA) Allergies Allergy/AdvReac Type Severity Reaction Status Date / Time sulfamethoxazole Allergy Intermediate Hives / Verified 10/24/22 11:39 Red Face trimethoprim Allergy Intermediate Hives / Verified 10/24/22 11:39 Red Face levofloxacin Allergy Hives Verified 10/24/22 11:39 Review of Systems Constitutional: Constitutional: Denies body ache(s) and Denies chills ENT: Denies bleeding gums, Denies halitosis, Denies change in voice, Denies dental pain, Denies vertigo, Denies dizziness, Denies headache(s), Denies hoarseness, Denies lip swelling, Denies mouth lesions and Denies tinnitus Comments: pain to bilateral sides of tongue Cardiovascular: Cardiovascular: Denies chest pain Respiratory: Respiratory: Denies cough, Denies pain on inspiration and Denies dyspnea Gastrointestinal: Gastrointestinal: Denies diarrhea, Denies nausea and Denies vomiting PMFSH Past Medical History Medical History Anxiety Asthma Bloody diarrhea Hypertension Lower abdominal pain Nausea and vomiting in adult Pre-diabetes Surgical History Surgical History History of 2 sections History of tubal ligation Family History Family History Other Acute myocardial infarction Breast cancer Social History Social History Social History: The patient lives in [place] with her fikarma. 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 No alcohol or illicit substance abuse. She designates her fiance, Brooks Riggs, as her surrogate decision maker and she wishes to be a full code. Years smoked: 9 Smoking status: Former smoker Tobacco type: cigarettes Alcohol intake: never Substance use type: does not use Gender identity (if verbalized by the patient): Female Spiritual care concerns: No Comments At time of signature, I agree with nursing past medical, surgical, social and family history. There is no relevant family history pertinent to the presenting complaint. Exam Const: General: cooperative, healthy appearing, comfortable, no acute distress, well developed, alert, awake and Physically active HENMT: Face and sinus: normal facial exam Mouth: Yes Normal oral and palatal mucosa present, Yes lip normal, Yes tongue normal ( scant amount of white discoloration noted to tongue. ), Yes moist mucous membranes and Yes other (No swelling or open wounds noted to tongue ) Teeth and gingiva: dentition normal, normal teeth and gingiva and dentition not poor Throat: posterior oropharynx normal and uvula m
== END 2022-10-24 12:43 | disposition home or self-care (01) ==
PROVIDERS: Emergency Provider Nurse Practitioner Family
DX: K14.6 Glossodynia (principal); Z87.891 Personal history of nicotine dependence; J45.909 Unspecified asthma, uncomplicated; I10 Essential (primary) hypertension; R73.03 Prediabetes; F41.9 Anxiety disorder, unspecified
CPT/HCPCS: 99213; G0463

== ENCOUNTER 2023-01-31 13:48 | Emergency (ER) | payer OTHER, SELFPAY ==
--- NOTE | ~2023-01-31 | XR_ITS ---
EXAMINATION: XR hand RT min 3V INDICATION: Right hand pain TECHNIQUE: Three views of the right hand are obtained. COMPARISON: None available FINDINGS: There is subtle cortical irregularity along the dorsal base of the first distal phalanx. Th ere is mild osteoarthritis of multiple interphalangeal joints as well as at the first metacarpophalan geal joint. IMPRESSION: 1. Possible nondisplaced fracture at the dorsal base of the first distal phalanx. Reviewed, dictated and finalized at location B. IMPRESSION: 1. Possible nondisplaced fracture at the dorsal base of the first distal phalan x.
--- NOTE | ~2023-01-31 | XR_ITS ---
EXAMINATION: XR wrist RT min 3V INDICATION: Right wrist pain TECHNIQUE: Four views of the right wrist are obtained. COMPARISON: None available FINDINGS: No fracture, dislocation, or subluxation. The bones, soft tissues, and joint spaces are nor mal. IMPRESSION: 1. No acute osseous abnormality. Reviewed, dictated and finalized at location B.
[2023-01-31 13:59] VITALS: BP 127/63; PULSE 71; RESP 12; TEMP 36.8; O2SAT 100
--- NOTE | 2023-01-31 14:06 | ED.UPPEXIN ---
HPI - Extremity Injury (Upper) General Chief Complaint: Extremity Injury, Upper Stated Complaint: Right Hand Pain Time Seen by Provider: 01/31/23 14:06 Source: patient Mode of arrival: ambulatory Limitations: no limitations History of Present Illness HPI narrative: 47-year-old female presents with complaint of pain to right wrist with swelling for the past 4-5 days. Patient reports that she has had pain to her right wrist for the last several weeks. States that she related to caring her 40 lb grandson. Reports that when she carries him the right is starts to ache. She denies injury to wrist. Approximately 4 days ago she was in her car in picked up her wallet and states that she felt a snap to right thumb. Since then has had swelling, decreased range of motion. 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 All systems reviewed and negative except as noted above. Related Data Home Medications Medication Instructions Recorded Confirmed alprazolam 0.5 mg tablet 1 tablet PO BID 03/15/22 01/31/23 diazepam 2 mg tablet 1 tablet PO HS 03/15/22 01/31/23 pantoprazole 40 mg tablet,delayed 1 tablet PO DAILY 03/15/22 01/31/23 release albuterol sulfate 90 mcg/actuation 2 puff inhalation QID PRN SOB 06/06/22 01/31/23 aerosol inhaler (ProAir HFA) Allergies Allergy/AdvReac Type Severity Reaction Status Date / Time sulfamethoxazole Allergy Intermediate Hives / Verified 01/31/23 13:58 Red Face trimethoprim Allergy Intermediate Hives / Verified 01/31/23 13:58 Red Face levofloxacin Allergy Hives Verified 01/31/23 13:58 Review of Systems Review of Systems: CONSTITUTIONAL: Denies fever, chills, or sweats. EYES: Denies visual changes, redness, or discharge. ENT: Denies rhinorrhea, congestion, sore throat, or otalgia. CARDIOVASCULAR: Denies chest pain, palpitations, or edema. RESPIRATORY: Denies cough or dyspnea. GASTROINTESTINAL: Denies abdominal pain, nausea, vomiting, or diarrhea. GENITOURINARY: Denies dysuria or hematuria. SKIN: Denies rash or itching. MUSCULOSKELETAL: Reports pain, swelling to right hand and wrist. Worse to right thumb. NEUROLOGIC: Denies headache, numbness, or weakness. PSYCHIATRIC: Denies anxiety or depression. All other systems reviewed are negative, except as documented in HPI. [facility] Past Medical History Medical History Anxiety Asthma Bloody diarrhea Hypertension Lower abdominal pain Nausea and vomiting in adult Pre-diabetes Surgical History Surgical History History of 2 sections History of tubal ligation Family History Family History Other Acute myocardial infarction Breast cancer Social History Social History Social History: The patient lives in [place] with her fiance. 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 No alcohol or illicit substance abuse. She designates her fiance, Brooks Riggs, as her surrogate decision maker and she wishes to be a full code. Years smoked: 9 Smoking status: Former smoker Tobacco type: cigarettes Alcohol intake: never Substance use type: does not use Living arrangements: with family Gender identity (if verbalized by the patient): Female Spiritual care concerns: No Comments At time of signature, agree with nursing past medical, surgical, social and family history. There is no relevant family history pertinent to the presenting complaint. Exam Narrative: GENERAL: This is a well-nourished, well-developed patient, in no apparent distress. HEAD: normocephalic, atraumatic. EYES: PERRL. Sclera clear/white. Vision is grossly intact. EARS: External ears normal NOSE: External nose normal NECK: Neck supple, non-tender without lymphadenopathy, masses or thyromegaly. CARD
== END 2023-01-31 15:25 | disposition home or self-care (01) ==
PROVIDERS: Emergency Provider Nurse Practitioner Family; PCP Family Medicine
DX: S62.521A Displaced fracture of distal phalanx of right thumb, initial encounter for closed fracture (principal); X58.XXXA Exposure to other specified factors, initial encounter; S63.601A Unspecified sprain of right thumb, initial encounter; J45.909 Unspecified asthma, uncomplicated; I10 Essential (primary) hypertension; R73.03 Prediabetes; Z87.891 Personal history of nicotine dependence
CPT/HCPCS: 29125; 73110; 73130; 99214; G0463

== ENCOUNTER 2023-08-13 14:41 | Emergency (ER) | payer OTHER, SELFPAY ==
--- NOTE | ~2023-08-13 | XR_ITS ---
EXAMINATION: XR chest 2V DATE: 08/13/2023 15:12 INDICATION: Asthmatic presenting with difficulty breathing TECHNIQUE: PA and lateral views of the chest were obtained. COMPARISON: Chest radiograph dated 03/30/2019 FINDINGS: The lungs remain clear with no focal airspace opacities, pulmonary edema, pleural effusion or pneumot horax. The cardiomediastinal silhouette is normal. Mild thoracic spondylosis. IMPRESSION: 1. No acute cardiopulmonary disease. Reviewed, dictated and finalized at location A.
[2023-08-13 14:52] VITALS: BP 148/77; PULSE 89; RESP 16; TEMP 36.7; O2SAT 97
--- NOTE | 2023-08-13 15:27 | ED.ASTHMA ---
HPI - Asthma General Chief Complaint: Asthma Stated Complaint: chest tightness,back pain Time Seen by Provider: 08/13/23 14:55 Source: patient Mode of arrival: ambulatory Limitations: no limitations History of Present Illness HPI Narrative: Noelle is a 48-year-old female patient presenting to clinic today with complaints of chest tightness and back pain x1 week. She reports she has a history of asthma. She is bringing up some green thick phlegm. Her PCP sent her in a prescription for some azithromycin. She has started is a a Zithromax and yesterday. Related Data Home Medications Medication Instructions Recorded Confirmed alprazolam 0.5 mg tablet 1 tablet PO BID 03/15/22 08/13/23 diazepam 2 mg tablet 1 tablet PO HS 03/15/22 08/13/23 pantoprazole 40 mg tablet,delayed 1 tablet PO DAILY 03/15/22 08/13/23 release albuterol sulfate 90 mcg/actuation 2 puff inhalation QID PRN SOB 06/06/22 08/13/23 aerosol inhaler (ProAir HFA) budesonide-formoterol HFA 80 2 inh inhalation BID 08/13/23 08/13/23 mcg-4.5 mcg/actuation aerosol inhaler (Symbicort) fluticasone propionate 110 1 inh inhalation BID 08/13/23 08/13/23 mcg/actuation HFA aerosol inhaler (Flovent HFA) Allergies Allergy/AdvReac Type Severity Reaction Status Date / Time cephalexin Allergy Intermediate Other Verified 08/13/23 15:05 doxycycline Allergy Intermediate Other Verified 08/13/23 15:05 levofloxacin Allergy Intermediate Hives Verified 08/13/23 15:05 sulfamethoxazole Allergy Intermediate Hives / Verified 08/13/23 14:55 Red Face trimethoprim Allergy Intermediate Hives / Verified 08/13/23 14:55 Red Face Review of Systems Review of Systems: Pertinent positives per HPI. Patient denies any fever, chills, rash, headache, visual changes, dizziness, runny nose, sore throat, chest pain, palpitations, nausea, vomiting, diarrhea, constipation, abdominal pain, or any urinary issues. PMFSH Past Medical History Medical History Anxiety Asthma Bloody diarrhea Hypertension Lower abdominal pain Nausea and vomiting in adult Pre-diabetes Surgical History Surgical History History of 2 sections History of tubal ligation Family History Family History Other Acute myocardial infarction Breast cancer Social History Social History Social History: The patient lives in [place] with her fiance. 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 No alcohol or illicit substance abuse. She designates her fiance, Brooks Riggs, as her surrogate decision maker and she wishes to be a full code. Years smoked: 9 Smoking status: Former smoker Tobacco type: cigarettes Alcohol intake: never Substance use type: does not use Living arrangements: with family Gender identity (if verbalized by the patient): Female Spiritual care concerns: No Comments At the time of my signature, I reviewed and agree with the nursing past medical, surgical, social, and family history. There is no relevant family history pertinent to the patient complaint. Exam Narrative: General: Well-developed, well nourished, in no apparent distress Head: Normocephalic, atraumatic Eyes: Pupils equally round and reactive to light bilaterally, EOM intact, sclera and conjunctive clear, no discharge, lids normal Ears: TMs intact and clear, ear canals clear, no drainage, grossly hearing normal. Nose: Nares patent, clear discharge, no inflammation, no sinus tenderness. Mouth: Oropharynx without lesions or masses, good dentition, MMM. Neck: Supple, trachea midline, no enlargement of anterior or posterior cervical nodes, no thyroid masses or goiter palpable. Cardio: Regular rate and rhythm, s1 and
== END 2023-08-13 15:38 | disposition home or self-care (01) ==
PROVIDERS: Emergency Provider Nurse Practitioner Family; PCP Family Medicine
DX: J40 Bronchitis, not specified as acute or chronic (principal); Z87.891 Personal history of nicotine dependence; I10 Essential (primary) hypertension; R73.03 Prediabetes; F41.9 Anxiety disorder, unspecified; J45.909 Unspecified asthma, uncomplicated
CPT/HCPCS: 71046; 99213; G0463

== ENCOUNTER 2024-05-17 11:50 | Emergency (ER) | payer OTHER, SELFPAY ==
[2024-05-17 12:01] VITALS: BP 150/77; PULSE 68; RESP 16; TEMP 36.6; O2SAT 99
[2024-05-17 12:25] LABS: EDUAAPPEAR Clear; EDUABILI Negative; EDUABLOOD 1+; EDUACOLOR1 Amber; EDUAGLUCOSE Negative; EDUAKETONE 1+; EDUALEUKO Negative; EDUANITRATE Negative; EDUAPH 6.5; EDUAPROTEIN Negative; EDUAUROBILI 0.2
--- NOTE | 2024-05-17 12:50 | ED.ABDPAIN ---
HPI - Abdominal Pain General Chief Complaint: Urogenital-Female Stated Complaint: High Blood Pressure Time Seen by Provider: 05/17/24 12:50 Source: patient, RN notes reviewed and old records reviewed Mode of arrival: ambulatory Limitations: no limitations History of Present Illness HPI narrative: Patient is complaining of urinary frequency and burning, back pain. She reports symptoms have been present for 2-3 days. Denies keny hematuria. She denies fever, chills, sweats. She is not taking anything for her symptoms. In addition, she is concerned about her blood pressure. Reports that she used to take antihypertensive medication, but was taken off of it about 4 years ago. Related Data Home Medications Medication Instructions Recorded Confirmed alprazolam 0.5 mg tablet 1 tablet PO BID 03/15/22 05/17/24 diazepam 2 mg tablet 1 tablet PO HS 03/15/22 05/17/24 pantoprazole 40 mg tablet,delayed 1 tablet PO DAILY 03/15/22 05/17/24 release albuterol sulfate 90 mcg/actuation 2 puff inhalation QID PRN SOB 06/06/22 05/17/24 aerosol inhaler (ProAir HFA) budesonide-formoterol HFA 80 2 inh inhalation BID 08/13/23 05/17/24 mcg-4.5 mcg/actuation aerosol inhaler (Symbicort) fluticasone propionate 110 1 inh inhalation BID 08/13/23 05/17/24 mcg/actuation HFA aerosol inhaler (Flovent HFA) metformin 500 mg tablet 500 mg PO BID 05/17/24 05/17/24 Allergies Allergy/AdvReac Type Severity Reaction Status Date / Time cephalexin Allergy Intermediate Other Verified 05/17/24 11:52 doxycycline Allergy Intermediate Other Verified 05/17/24 11:52 levofloxacin Allergy Intermediate Hives Verified 05/17/24 11:52 sulfamethoxazole Allergy Intermediate Hives / Verified 05/17/24 11:52 Red Face trimethoprim Allergy Intermediate Hives / Verified 05/17/24 11:52 Red Face Review of Systems Review of Systems: All systems reviewed & are unremarkable except as noted in HPI and below Constitutional: Constitutional: Reports no additional constitutional complaints ENT: Reports system reviewed and no additional complaints, except as documented Cardiovascular: Cardiovascular: Reports no additional cardiovascular complaints Respiratory: Respiratory: Reports no additional respiratory complaints Gastrointestinal: Gastrointestinal: Reports no additional gastrointestinal complaints Genitourinary: Genitourinary: Reports dysuria, Denies pelvic pain, Reports flank pain, Reports urinary urgency and Denies vaginal discharge Musculoskeletal: Musculoskeletal: Reports back pain PMFSH Past Medical History Medical History Anxiety Asthma Bloody diarrhea Hypertension Lower abdominal pain Nausea and vomiting in adult Pre-diabetes Surgical History Surgical History History of 2 sections History of tubal ligation Family History Family History Other Acute myocardial infarction Breast cancer Social History Social History Social History: The patient lives in [place] with her fiance. 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 No alcohol or illicit substance abuse. She designates her fiance, Brooks Riggs, as her surrogate decision maker and she wishes to be a full code. Years smoked: 9 Smoking status: Former smoker Tobacco type: cigarettes Alcohol intake: never Substance use type: does not use Living arrangements: with family Gender identity (if verbalized by the patient): Female Spiritual care concerns: No Comments At the time of my signature, I reviewed and agree with the nursing past medical, surgical, social, and family history. There is no relevant family history pertinent to the patient complaint. Exam Const: General: cooperative, no
== END 2024-05-17 13:05 | disposition home or self-care (01) ==
PROVIDERS: Emergency Provider Nurse Practitioner Family; PCP Family Medicine
DX: R30.0 Dysuria (principal); I10 Essential (primary) hypertension; R73.03 Prediabetes; J45.909 Unspecified asthma, uncomplicated; F41.9 Anxiety disorder, unspecified; Z87.891 Personal history of nicotine dependence
CPT/HCPCS: 81003; 99212; G0463

== ENCOUNTER 2024-08-30 15:32 | Emergency (ER) | payer OTHER, SELFPAY ==
[2024-08-30 15:43] VITALS: BP 130/55; PULSE 74; RESP 16; TEMP 36.7; O2SAT 98
[2024-08-30 16:22] LABS: EDUAAPPEAR Clear; EDUABILI Negative (Negative); EDUABLOOD Trace (Negative); EDUACOLOR1 Yellow; EDUAGLUCOSE Negative (Negative); EDUAKETONE Negative (Negative); EDUALEUKO Negative (Negative); EDUANITRATE Negative (Negative); EDUAPROTEIN Negative (Negative); EDUASPGRAVITY 1.025; EDUAUROBILI 0.2
== END 2024-08-30 17:09 | disposition left against medical advice (07) ==
LOC: EXPCOLL 15:34
PROVIDERS: Emergency Provider Nurse Practitioner Family; PCP Family Medicine
DX: R39.9 Unspecified symptoms and signs involving the genitourinary system (principal)
CPT/HCPCS: 81003; 87086; 99199

== ENCOUNTER 2024-09-14 16:23 | Emergency (ER) | payer OTHER, SELFPAY ==
--- NOTE | ~2024-09-14 | XR_ITS ---
EXAMINATION: XR chest 2V DATE: 09/14/2024 17:09 INDICATION: Chest congestion. TECHNIQUE: Frontal and lateral views of the chest were obtained. COMPARISON: Chest 2 views 08/13/2023 FINDINGS: There is no pneumonia, pleural effusion, or pneumothorax. The heart size is normal. IMPRESSION: 1. No acute cardiopulmonary disease. Reviewed, dictated and finalized at location A. CONTROL CLERK
--- NOTE | 2024-09-14 16:28 | ED.URI ---
HPI - URI/Sore Throat General Chief Complaint: Upper Respiratory Infection Stated Complaint: Sinus Time Seen by Provider: 09/14/24 16:35 Source: patient, RN notes reviewed and old records reviewed Mode of arrival: ambulatory Limitations: no limitations History of Present Illness HPI Narrative: Patient presents with 4 day history of cough, sore throat, runny nose. She reports that she has been taking [id number] medications with poor results. States that she stayed in bed all day yesterday. Reports that she feels as though ?I have bricks in my chest?. Says that she has been doing neb treatments at home with good results. She denies any wheezing. She reports subjective fever, lack of energy. She is not in any distress Related Data Home Medications Medication Instructions Recorded Confirmed alprazolam 0.5 mg tablet 1 tablet PO BID 03/15/22 05/17/24 diazepam 2 mg tablet 1 tablet PO HS 03/15/22 05/17/24 pantoprazole 40 mg tablet,delayed 1 tablet PO DAILY 03/15/22 05/17/24 release albuterol sulfate 90 mcg/actuation 2 puff inhalation QID PRN SOB 06/06/22 05/17/24 aerosol inhaler (ProAir HFA) budesonide-formoterol HFA 80 2 inh inhalation BID 08/13/23 05/17/24 mcg-4.5 mcg/actuation aerosol inhaler (Symbicort) fluticasone propionate 110 1 inh inhalation BID 08/13/23 05/17/24 mcg/actuation HFA aerosol inhaler (Flovent HFA) metformin 500 mg tablet 500 mg PO BID 05/17/24 05/17/24 beclomethasone dipropionate 80 inhalation 09/14/24 mcg/actuation HFA breath activated aerosol (Qvar RediHaler) Allergies Allergy/AdvReac Type Severity Reaction Status Date / Time cephalexin Allergy Intermediate Other Verified 09/14/24 16:26 doxycycline Allergy Intermediate Other Verified 09/14/24 16:26 levofloxacin Allergy Intermediate Hives Verified 09/14/24 16:26 sulfamethoxazole Allergy Intermediate Hives / Verified 09/14/24 16:26 Red Face trimethoprim Allergy Intermediate Hives / Verified 09/14/24 16:26 Red Face Review of Systems Review of Systems: All systems reviewed & are unremarkable except as noted in HPI and below Constitutional: Constitutional: Reports no additional constitutional complaints ENT: Reports system reviewed and no additional complaints, except as documented and Reports sore throat Cardiovascular: Cardiovascular: Reports no additional cardiovascular complaints Respiratory: Respiratory: Reports no additional respiratory complaints, Reports chest congestion, Reports cough and Reports excessive phlegm production Gastrointestinal: Gastrointestinal: Reports no additional gastrointestinal complaints [facility] Past Medical History Medical History Anxiety Asthma Bloody diarrhea Hypertension Lower abdominal pain Nausea and vomiting in adult Pre-diabetes Surgical History Surgical History History of 2 sections History of tubal ligation Family History Family History Other Acute myocardial infarction Breast cancer Social History Social History Social History: The patient lives in [place] with her fiance. 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 No alcohol or illicit substance abuse. She designates her fiance, Brooks Riggs, as her surrogate decision maker and she wishes to be a full code. Years smoked: 9 Smoking status: Former smoker Tobacco type: cigarettes Alcohol intake: never Substance use type: does not use Living arrangements: with family Gender identity (if verbalized by the patient): Female Spiritual care concerns: No Comments At the time of my signature, I reviewed and agree with the nursing past medical, surgical, social, and family history. There is no relevant family history pertinent to the patient complaint. Exam Const: General: cooperative, no acute distress, alert and awake Orientation/consciousness: oriented to person, oriented to place and oriented to time HENMT: Head: normal to inspection Resp: Effort & Inspection: normal respiratory effort and able to speak in complete sentences Auscultation: clear to auscultation bilaterally, no crackles, no rales, no rhonchi and no wheezes Cardio: Palpation: normal PMI Rate: regular rate Rhythm: regular rhythm Heart sounds: S1 normal heart sound present and S2 normal heart sound present Neuro: General: oriented to person, oriented to place and oriented to time Cranial nerves: Yes CN's II-XII intact bilaterally Psych: Appearance: grossly normal Thought process: Normal thought process present Insight: Good insight present (Psych) Judgement: Good judgement present (Psych) Course Course Level of Care: Express Care Visit Vital Signs Vital signs: Reviewed MDM - URI/Sore Throat MDM Narrative Medical decision making narrative: Negative strep, negative chest x-ray. Reassuring physical exam. Treat with steroid burst, continue bronchodilators. History consistent with asthma exacerbation. Patient is not in any distress. Stable for discharge home Discharge instructions reviewed with patient, as well as provided in writing per nursing staff. The instructions also include specific and strict return/GO TO THE ER as well as f/u information. All questions have been answered, and the patient deny any further questions with discharge and discharge plan. Some parts of this dictation were generated by voice recognition software and may contain typographical and/or grammatical inaccuracies. Differential Diagnosis Differential diagnosis: Likely upper respiratory infection, otitis media, bronchitis and pharyngitis Medical Records Attestation: I reviewed the patient's medical records. Lab Data Attestation: I reviewed the patient's lab results. Imaging Data Attestation: I personally reviewed and interpreted this imaging study as follows: My impression: neg Radiologist's impression: [facility] [place] [address] [place] [address] XRay Report Signed Patient: Noelle Jordan : 1975 MR#: [id number] Age: 49 Acct:[id number] Loc: [facility] ADM Date: 09/14/24Attending Dr: Ordering Physician: Penny Russell FNP Date of Service: 09/14/24 Procedure(s): XR chest 2V Accession Number(s): [id number] cc: Penny Russell FNP; Celso, John NICK~ EXAMINATION: XR chest 2V DATE: 09/14/2024 17:09 INDICATION: Chest congestion. TECHNIQUE: Frontal and lateral views of the chest were obtained. COMPARISON: Chest 2 views 08/13/2023 FINDINGS: There is no pneumonia, pleural effusion, or pneumothorax. The heart size is normal. IMPRESSION: 1. No acute cardiopulmonary disease. Reviewed, dictated and finalized at location A. [employer] Dictated By: Eugene Sullivan MD 09/14/24 1709 Signed By: <Electronically signed by Eugene Sullivan MD in OV> 09/14/24 1710 Discharge Plan Discharge Clinical Impression: Asthma Qualifiers: Asthma severity: unspecified severity Asthma persistence: unspecified Asthma complication type: with acute exacerbation Qualified Code(s): J45.901 - Unspecified asthma with (acute) exacerbation Patient Disposition: Home, Self-Care Condition: Stable Instructions: Antibiotic Form, Asthma (ED) Additional Instructions: Take medication as prescribed. Follow-up with primary care provider. Emergency department for new or worse symptoms Patient Language: Bangladeshi Prescriptions: New prednisone 50 mg tablet 50 mg PO DAILY Qty: 5 0RF albuterol sulfate [Ventolin HFA] 90 mcg/actuation HFA aerosol inhaler 2 puff inhalation QID PRN (Reason: shortness of breath or wheezing) Qty: 8.5 0RF No Action fluticasone propionate [Flovent HFA] 110 mcg/actuation HFA aerosol inhaler 1 inh INHALATION BID budesonide-formoterol [Symbicort] 80-4.5 mcg/actuation HFA aerosol inhaler 2 inh INHALATION BID metformin 500 mg tablet 500 mg PO BID alprazolam 0.5 mg tablet 1 tablet PO BID diazepam 2 mg tablet 1 tablet PO HS pantoprazole 40 mg tablet,delayed release (DR/EC) 1 tablet PO DAILY albuterol sulfate [ProAir HFA] 90 mcg/actuation Hfa Aerosol Inhaler 2 puff INHALATION QID PRN (Reason: SOB) Qvar RediHaler 80 mcg/actuation HFA aerosol breath activated INHALATION Follow-up/Referrals: Celso,MD John [Primary Care Provider] - 1 Week Stand Alone Forms: Work/School Release IP Time of Disposition: 17:19
[2024-09-14 16:31] VITALS: BP 131/68; PULSE 84; RESP 20; TEMP 36.9; O2SAT 96
== END 2024-09-14 17:25 | disposition home or self-care (01) ==
PROVIDERS: Emergency Provider Nurse Practitioner Family; PCP Family Medicine
DX: J45.901 Unspecified asthma with (acute) exacerbation (principal); I10 Essential (primary) hypertension; R73.03 Prediabetes; F41.9 Anxiety disorder, unspecified
CPT/HCPCS: 71046; 87081; 99213; G0463

== ENCOUNTER 2024-10-28 17:23 | Emergency (ER) | payer OTHER, SELFPAY ==
--- NOTE | ~2024-10-28 | XR_ITS ---
EXAM: XR lumbar spine 2-3V DATE: 10/28/2024 18:07 HISTORY: injuryl/fall, LT side general pain . COMPARISON: CT abdomen pelvis 11/29/2020. FINDINGS: 5 nonrib-bearing lumbar-type vertebral bodies. Pedicles intact. Normal vertebral body alig nment. Vertebral body heights preserved. Mild multilevel degenerative disc disease. Mild lower lumbar facet arthropathy. Chronic mild anterior wedge deformity at L3 and L4. No fracture or dislocation. IMPRESSION: No acute fracture or traumatic malalignment detected in the lumbar spine. Reviewed, dictated and finalized at location K. GEMENT ANALYST
--- NOTE | ~2024-10-28 | XR_ITS ---
EXAM: XR hip LT min 2V DATE: 10/28/2024 18:07 HISTORY: injury/fall . COMPARISON: None available. FINDINGS: Normal mineralization. No fracture or dislocation. No lytic or blastic lesion. Mild degene rative change in the left hip and mild pelvic and hip enthesopathy. No erosion or periosteal change. Soft tissues within normal limits. IMPRESSION: No acute osseous finding in the left hip. Reviewed, dictated and finalized at location K. REIGHT OPERATIONS AGENT
--- NOTE | ~2024-10-28 | XR_ITS ---
EXAM: XR wrist LT min 3V DATE: 10/28/2024 18:07 HISTORY: fall/injury . COMPARISON: None available. FINDINGS: Normal mineralization. No fracture or dislocation. No lytic or blastic lesion. Short fourt h metacarpal. Mild scattered degenerative changes. Prominent physeal scar in the distal radius. No er osion or periosteal change. Soft tissues within normal limits. IMPRESSION: No acute osseous finding in the left wrist. Reviewed, dictated and finalized at location K. PROJECT LEAD
--- NOTE | 2024-10-28 17:24 | ED_ITS ---
HPI - Fall General Chief Complaint: Fall Stated Complaint: FALL Time Seen by Provider: 10/28/24 17:24 Source: patient Mode of arrival: ambulatory Limitations: no limitations History of Present Illness HPI Narrative: Noelle is a 49-year-old female patient presenting to the clinic today with complaints of a fall. She reports this occurred yesterday while she was going into work. She states she got out of her vehicle and slipped on some ice and landed on her left side. Is reporting left wrist/hand pain, left hip pain, mid/low back pain, and reports she hit the back of her head. She denies any loss of consciousness when this occurred. Does have a small knotted area to the back of her head. Went ahead and went into work yesterday and took some ibuprofen. Related Data Home Medications ?Medication ?Instructions ?Recorded ?Confirmed ?Last Taken ?Type alprazolam 0.5 mg tablet 1 tablet PO BID 03/15/22 05/17/24 Unknown History diazepam 2 mg tablet 1 tablet PO HS 03/15/22 05/17/24 Unknown History pantoprazole 40 mg tablet,delayed 1 tablet PO DAILY 03/15/22 05/17/24 Unknown History release budesonide-formoterol HFA 80 2 inh inhalation BID 08/13/23 05/17/24 Unknown History mcg-4.5 mcg/actuation aerosol inhaler (Symbicort) fluticasone propionate 110 1 inh inhalation BID 08/13/23 05/17/24 Unknown History mcg/actuation HFA aerosol inhaler (Flovent HFA) metformin 500 mg tablet 500 mg PO BID 05/17/24 05/17/24 Unknown History beclomethasone dipropionate 80 inhalation 09/14/24 Unknown History mcg/actuation HFA breath activated aerosol (Qvar RediHaler) diltiazem HCl 30 mg tablet mg 10/28/24 Unknown History Allergies Allergy/AdvReac Type Severity Reaction Status Date / Time cephalexin Allergy Intermediate Other Verified 10/28/24 17:29 doxycycline Allergy Intermediate Other Verified 10/28/24 17:29 levofloxacin Allergy Intermediate Hives Verified 10/28/24 17:29 sulfamethoxazole Allergy Intermediate Hives / Verified 10/28/24 17:29 Red Face trimethoprim Allergy Intermediate Hives / Verified 10/28/24 17:29 Red Face Review of Systems Review of Systems: Pertinent positives per HPI. Patient denies any fever, chills, rash, headache, visual changes, dizziness, cough, runny nose, sore throat, shortness of breath, chest pain, palpitations, nausea, vomiting, diarrhea, constipation, abdominal pain, or any urinary issues. [facility] Past Medical History Medical History Bloody diarrhea Lower abdominal pain Nausea and vomiting in adult Pre-diabetes Anxiety Hypertension Asthma Surgical History Surgical History History of tubal ligation History of 2 sections Family History Family History Other Acute myocardial infarction Breast cancer Social History Social History Social History: The patient lives in [place] with her fiance. 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 No alcohol or illicit substance abuse. She designates her fiance, Brooks Riggs, as her surrogate decision maker and she wishes to be a full code. Years smoked: 9 Smoking status: Former smoker Tobacco type: cigarettes Alcohol intake: never Substance use type: does not use Living arrangements: with family Gender identity (if verbalized by the patient): Female Spiritual care concerns: No Comments At the time of my signature, I reviewed and agree with the nursing past medical, surgical, social, and family history. There is no relevant family history pertinent to the patient complaint. Exam Narrative: General: Well-developed, well nourished, in no apparent distress Head: Normocephalic, atraumatic Eyes: Pupils equally round and reactive to light bilaterally, EOM intact, sclera and conjunctive clear, no discharge, lids normal Ears: TMs intact and clear, ear canals clear, no drainage, grossly hearing nor mal. Nose: Nares patent, no discharge, no inflammation, no sinus tenderness. Mouth: Oropharynx without lesions or masses, good dentition, MMM. Tongue midline, even rise and fall of uvula Neck: Supple, trachea midline, no enlargement of anterior or posterior cervical nodes, no thyroid masses or goiter palpable. Cardio: Regular rate and rhythm, s1 and s2 normal, no murmur appreciated. Resp: Clear to auscultation bilaterally anteriorly and posteriorly, no rhonchi, rales, wheezing or rubs Musculoskeletal: No deformity, no bruising or swelling noted, tender to palpation over the left dorsal wrist, left palm of hand, left sided low back and left mid back, and posterior left hip, grossly normal range of motion, muscle strength strong and equal, peripheral pulse strong, no edema, no cyanosis, normal gait and station Neuro: Alert and oriented x4 with normal speech, no focal deficits, cranial nerves I through XII intact, muscle strength 5 out of 5, sensation intact bilaterally, negative Romberg test Course Course Emergency Course: Portions of this record may have been created with voice recognition software. Level of Care: Express Care Visit Vital Signs Vital signs: Vital Signs Temperature 37.1 C 10/28/24 17:34 Pulse Rate 75 10/28/24 17:34 Respiratory Rate 16 10/28/24 17:34 Blood Pressure 141/73 H 10/28/24 17:34 Pulse Oximetry 97 10/28/24 17:34 Oxygen Delivery Room Air 10/28/24 17:34 Temperature 37.1 C 10/28/24 17:34 Pulse Rate 75 10/28/24 17:34 Respiratory Rate 16 10/28/24 17:34 Blood Pressure 141/73 H 10/28/24 17:34 Pulse Oximetry 97 10/28/24 17:34 Oxygen Delivery Room Air 10/28/24 17:34 Vital signs reviewed MDM - Fall MDM Narrative Medical decision making narrative: At the time of visit patient is resting comfortably on the exam table. Patient appears to be nontoxic. Diagnostics: X-rays the left wrist, left hip, and lumbar spine were performed. All x-rays were negative for any fracture or malalignment. Plan: I suspect patient has had a ground level fall with contusions of the head, wrist, and back. Will send in prescription for naproxen. Supportive measures were discussed with the patient and they voiced understanding discharge instructions and agrees to treatment plan. Return precautions reviewed Differential Diagnosis Differential diagnosis: Likely fracture of wrist, compression fracture, concussion without loss of consciousness and other (Contusion, soft tissue injury, hand fracture, fall causing injury) Imaging Data Radiologist's impression: ITS Impressions Wrist X-Ray 10/28/24 18:12 IMPRESSION: No acute osseous finding in the left wrist. Hip X-Ray 10/28/24 18:14 IMPRESSION: No acute osseous finding in the left hip. Lumbar Spine X-Ray 10/28/24 18:14 IMPRESSION: No acute fracture or traumatic malalignment detected in the lumbar spine. Discharge Plan Discharge Clinical Impression: Fall from ground level Contusion of head Qualifiers: Encounter type: initial encounter Contusion of head detail: other part of head Qualified Code(s): S00.83XA - Contusion of other part of head, initial encounter Contusion of hip, left Qualifiers: Encounter type: initial encounter Qualified Code(s): S70.02XA - Contusion of left hip, initial encounter Low back pain Qualifiers: Chronicity: acute Back pain laterality: left Sciatica presence: without sciatica Qualified Code(s): M54.50 - Low back pain, unspecified Acute thoracic back pain Qualifiers: Back pain laterality: left Qualified Code(s): M54.6 - Pain in thoracic spine Patient Disposition: Home, Self-Care Condition: Stable Instructions: Antibiotic Form, Wrist Injury (ED), Head Injury in Children (ED), Acute Low Back Pain (ED), Back Pain (ED), Fall Prevention (ED), Hip Contusion (ED) Additional Instructions: All x-rays are for any sign of fracture or malalignment. Take any prescription medication only as prescribed-naproxen Continue current medications Be mindful of sedation precautions given to you if taking a muscle relaxer. May use heat or ice to the affected area Consider massage or chiropractor adjustment if this was discussed with provider May use blue emu, lidocaine patches, or asper cream to affected area- do not apply heat or ice directly over cream- can cause burn. Complete appropriate back stretching exercises. Follow up with your PCP in 3-5 days if symptom persist. Patient Language: Syrian Prescriptions: New naproxen 500 mg tablet 500 mg PO BID PRN (Reason: pain) 7 Days Qty: 14 0RF No Action fluticasone propionate [Flovent HFA] 110 mcg/actuation HFA aerosol inhaler 1 inh INHALATION BID budesonide-formoterol [Symbicort] 80-4.5 mcg/actuation HFA aerosol inhaler 2 inh INHALATION BID metformin 500 mg tablet 500 mg PO BID alprazolam 0.5 mg tablet 1 tablet PO BID diazepam 2 mg tablet 1 tablet PO HS pantoprazole 40 mg tablet,delayed release (DR/EC) 1 tablet PO DAILY Qvar RediHaler 80 mcg/actuation HFA aerosol breath activated INHALATION albuterol sulfate [Ventolin HFA] 90 mcg/actuation HFA aerosol inhaler 2 puff inhalation QID PRN (Reason: shortness of breath or wheezing) Qty: 8.5 0RF diltiazem HCl 30 mg tablet Follow-up/Referrals: UNKNOWN,DOCTOR [Non-Staff] - Stand Alone Forms: Work/School Release IP Time of Disposition: 18:33 Quality NIHSS Nursing Documentation ED NIHSS nursing documentation: reviewed/agree
[2024-10-28 17:34] VITALS: BP 141/73; PULSE 75; RESP 16; TEMP 37.1; O2SAT 97
== END 2024-10-28 18:40 | disposition home or self-care (01) ==
PROVIDERS: Emergency Provider Nurse Practitioner Family
DX: S00.93XA Contusion of unspecified part of head, initial encounter (principal); S70.02XA Contusion of left hip, initial encounter; W00.0XXA Fall on same level due to ice and snow, initial encounter; M54.50 Low back pain, unspecified; M54.6 Pain in thoracic spine; R73.03 Prediabetes; I10 Essential (primary) hypertension; J45.909 Unspecified asthma, uncomplicated; F41.9 Anxiety disorder, unspecified
CPT/HCPCS: 72100; 73110; 73502; 99214; G0463

== ENCOUNTER 2025-01-08 14:19 | Emergency (ER) | payer OTHER, SELFPAY ==
[2025-01-08 14:24] VITALS: BP 146/75; PULSE 77; RESP 16; TEMP 36.7; O2SAT 98
--- NOTE | 2025-01-08 14:27 | ED_ITS ---
HPI - Female Genitourinary General Chief complaint: Urogenital-Female Stated complaint: labia swollen and pain Time Seen by Provider: 01/08/25 14:28 Source: patient Mode of arrival: ambulatory Limitations: no limitations History of Present Illness HPI Narrative: Noelle is a 49-year-old female patient presenting to the clinic today with complaints of her labia being swollen and painful. She reports symptoms have been going on for 3-4 days. She is having problems sitting and walking due to the pain. Has hard not to the bottom of the right labia. States she does shave her pubic area. No fevers, chills, or body aches. No history of Bartholin cyst or abscess. Has been using nystatin because she has had itching to the labia majora. Related Data Home Medications ?Medication ?Instructions ?Recorded ?Confirmed ?Last Taken ?Type alprazolam 0.5 mg tablet 1 tablet PO BID 03/15/22 05/17/24 Unknown History diazepam 2 mg tablet 1 tablet PO HS 03/15/22 05/17/24 Unknown History pantoprazole 40 mg tablet,delayed 1 tablet PO DAILY 03/15/22 05/17/24 Unknown History release budesonide-formoterol HFA 80 2 inh inhalation BID 08/13/23 05/17/24 Unknown History mcg-4.5 mcg/actuation aerosol inhaler (Symbicort) fluticasone propionate 110 1 inh inhalation BID 08/13/23 05/17/24 Unknown History mcg/actuation HFA aerosol inhaler (Flovent HFA) metformin 500 mg tablet 500 mg PO BID 05/17/24 05/17/24 Unknown History beclomethasone dipropionate 80 inhalation 09/14/24 Unknown History mcg/actuation HFA breath activated aerosol (Qvar RediHaler) diltiazem HCl 30 mg tablet mg 10/28/24 Unknown History Allergies Allergy/AdvReac Type Severity Reaction Status Date / Time cephalexin Allergy Intermediate Other Verified 01/08/25 14:24 doxycycline Allergy Intermediate Other Verified 01/08/25 14:24 levofloxacin Allergy Intermediate Hives Verified 01/08/25 14:24 sulfamethoxazole Allergy Intermediate Hives / Verified 01/08/25 14:24 Red Face trimethoprim Allergy Intermediate Hives / Verified 01/08/25 14:24 Red Face Review of Systems Review of Systems: Pertinent positives per HPI. Patient denies any fever, chills, rash, headache, visual changes, dizziness, cough, runny nose, sore throat, shortness of breath, chest pain, palpitations, nausea, vomiting, diarrhea, constipation, abdominal pain, or any urinary issues. [facility] Past Medical History Medical History Bloody diarrhea Lower abdominal pain Nausea and vomiting in adult Pre-diabetes Anxiety Hypertension Asthma Surgical History Surgical History History of tubal ligation History of 2 sections Family History Family History Other Acute myocardial infarction Breast cancer Social History Social History Social History: The patient lives in [place] with her fiance. 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 No alcohol or illicit substance abuse. She designates her fiance, Brooks Riggs, as her surrogate decision maker and she wishes to be a full code. Years smoked: 9 Smoking status: Former smoker Tobacco type: cigarettes Alcohol intake: never Substance use type: does not use Living arrangements: with family Gender identity (if verbalized by the patient): Female Spiritual care concerns: No Comments At the time of my signature, I reviewed and agree with the nursing past medical, surgical, social, and family history. There is no relevant family history pertinent to the patient complaint. Exam Narrative: General: Well-developed, well nourished, in no apparent distress Head: Normocephalic, atraumatic. Cardio: Regular rate and rhythm, s1 and s2 normal, no murmur appreciated. Resp: Clear to auscultation bilaterally, no rhonchi, rales, wheezing or rubs. Abdomen: Soft, pliable, bowel sounds present in all quadrants, non-tender to palpation, no CVAT tenderness. : Pelvic exam performed with (Paris MANN) at bedside. Verbal consent obtained from patient. Normal external female genitalia with redness,scaling and erythema to the labia majora, hard tender mass approx 1 x 0.5cm to the right lower vulva, no drainage. Course Course Emergency Course: Portions of this record may have been created with voice recognition software. Level of Care: Express Care Visit Vital Signs Vital signs: Vital Signs Temperature 36.7 C 01/08/25 14:24 Pulse Rate 77 01/08/25 14:24 Respiratory Rate 16 01/08/25 14:24 Blood Pressure 146/75 H 01/08/25 14:24 Pulse Oximetry 98 01/08/25 14:24 Oxygen Delivery Room Air 01/08/25 14:24 Temperature 36.7 C 01/08/25 14:24 Pulse Rate 77 01/08/25 14:24 Respiratory Rate 16 01/08/25 14:24 Blood Pressure 146/75 H 01/08/25 14:24 Pulse Oximetry 98 01/08/25 14:24 Oxygen Delivery Room Air 01/08/25 14:24 Vital signs reviewed MDM - Female Genitourinary MDM Narrative Medical decision making narrative: At the time of visit patient is resting comfortably on the exam table. Patient appears to be nontoxic. Plan: Patient has a 1 x 0.5 cm tender mass to the right lower labia majora. Has excoriation, redness, and scaling to bilateral labia majora is that appear to be dermatitis. Will send in prescription for triamcinolone cream as well as clindamycin and Augmentin to cover for a vulvar abscess. Supportive measures were discussed with the patient and they voiced understanding discharge instructions and agrees to treatment plan. Return precautions reviewed Differential Diagnosis Differential diagnosis: Likely other (Vulvar abscess, Bartholin cyst, vulvar dermatitis, yeast infection, vulvar mass) Discharge Plan Discharge Clinical Impression: Abscess of vulva, Dermatitis of vulva Patient Disposition: Home, Self-Care Condition: Stable Instructions: Antibiotic Form, Abscess (ED), Dermatitis (ED) Additional Instructions: May apply triamcinolone cream to the affected area to help alleviate itching/swelling Take clindamycin and Augmentin as prescribed May perform Sitz baths-warm compresses to the affected area May take Tylenol/Motrin as needed for pain Follow-up with your PCP/OBGYN in 2-3 days Go to the emergency room if symptoms worsen-increase in pain, redness, swelling, fevers, streaking, or purulent drainage Patient Language: South African Prescriptions: New triamcinolone acetonide 0.1 % cream 1 applic topical BID 7 Days Qty: 30 0RF clindamycin HCl [Cleocin HCl] 300 mg capsule 300 mg PO Q8H 7 Days Qty: 21 0RF amoxicillin-pot clavulanate 875-125 mg tablet 1 tablet PO Q12H 7 Days Qty: 14 0RF No Action fluticasone propionate [Flovent HFA] 110 mcg/actuation HFA aerosol inhaler 1 inh INHALATION BID budesonide-formoterol [Symbicort] 80-4.5 mcg/actuation HFA aerosol inhaler 2 inh INHALATION BID metformin 500 mg tablet 500 mg PO BID alprazolam 0.5 mg tablet 1 tablet PO BID diazepam 2 mg tablet 1 tablet PO HS pantoprazole 40 mg tablet,delayed release (DR/EC) 1 tablet PO DAILY Qvar RediHaler 80 mcg/actuation HFA aerosol breath activated INHALATION albuterol sulfate [Ventolin HFA] 90 mcg/actuation HFA aerosol inhaler 2 puff inhalation QID PRN (Reason: shortness of breath or wheezing) Qty: 8.5 0RF diltiazem HCl 30 mg tablet naproxen 500 mg tablet 500 mg PO BID PRN (Reason: pain) 7 Days Qty: 14 0RF Follow-up/Referrals: UNKNOWN,DOCTOR [Primary Care Provider] - Stand Alone Forms: Work/School Release IP Time of Disposition: 14:59 Quality NIHSS Nursing Documentation ED NIHSS nursing documentation: reviewed/agree
== END 2025-01-08 15:05 | disposition home or self-care (01) ==
PROVIDERS: Emergency Provider Nurse Practitioner Family
DX: N76.4 Abscess of vulva (principal); N76.89 Other specified inflammation of vagina and vulva; L30.9 Dermatitis, unspecified; Z87.891 Personal history of nicotine dependence; R73.03 Prediabetes; I10 Essential (primary) hypertension; J45.909 Unspecified asthma, uncomplicated; F41.9 Anxiety disorder, unspecified
CPT/HCPCS: 99213; G0463

== ENCOUNTER 2025-03-10 14:10 | Emergency (ER) | payer OTHER, SELFPAY ==
--- NOTE | 2025-03-10 14:27 | ED.URI ---
HPI - URI/Sore Throat General Chief Complaint: Upper Respiratory Infection Stated Complaint: C/O UTI AND UPPER RESP SX Time Seen by Provider: 03/10/25 14:28 Source: patient, RN notes reviewed and old records reviewed Mode of arrival: ambulatory Limitations: no limitations History of Present Illness HPI Narrative: 49-year-old female with a history of reactive airway disease, chronic BV issues presents with cough for 3 days. Vaginal irritation for 4 days. Patient reports that a cough started 3 days ago has been using her nebulizer and her inhaler. States that her primary care provider called in cephalexin and steroids last week but no improvement. Patient denies any chest pain. Has and intermittent shortness of breath. States that she uses her nebulizer treatment and used it just prior to arrival. Patient also concerned with her BV, irritation to the vaginal area for 4 days. Had tried using [id number] yeast medication with no improvement. Requesting BV treatment with cream. Related Data Home Medications ?Medication ?Instructions ?Recorded ?Confirmed ?Last Taken ?Type alprazolam 0.5 mg tablet 1 tablet PO BID 03/15/22 05/17/24 Unknown History diazepam 2 mg tablet 1 tablet PO HS 03/15/22 05/17/24 Unknown History pantoprazole 40 mg tablet,delayed 1 tablet PO DAILY 03/15/22 05/17/24 Unknown History release budesonide-formoterol HFA 80 2 inh inhalation BID 08/13/23 05/17/24 Unknown History mcg-4.5 mcg/actuation aerosol inhaler (Symbicort) fluticasone propionate 110 1 inh inhalation BID 08/13/23 05/17/24 Unknown History mcg/actuation HFA aerosol inhaler (Flovent HFA) metformin 500 mg tablet 500 mg PO BID 05/17/24 05/17/24 Unknown History beclomethasone dipropionate 80 inhalation 09/14/24 Unknown History mcg/actuation HFA breath activated aerosol (Qvar RediHaler) diltiazem HCl 30 mg tablet mg 10/28/24 Unknown History Allergies Allergy/AdvReac Type Severity Reaction Status Date / Time doxycycline Allergy Intermediate Other Verified 03/10/25 14:37 levofloxacin Allergy Intermediate Hives Verified 03/10/25 14:37 sulfamethoxazole Allergy Intermediate Hives / Verified 03/10/25 14:37 Red Face trimethoprim Allergy Intermediate Hives / Verified 03/10/25 14:37 Red Face Review of Systems Review of Systems: All systems reviewed & are unremarkable except as noted in HPI and below Constitutional: Constitutional: Reports no additional constitutional complaints ENT: Reports system reviewed and no additional complaints, except as documented Cardiovascular: Cardiovascular: Reports no additional cardiovascular complaints, Denies chest pain and Denies dyspnea Respiratory: Respiratory: Reports as per HPI, Denies chest congestion, Reports cough and Denies dyspnea Genitourinary: Genitourinary: Reports as per HPI Musculoskeletal: Musculoskeletal: Reports no additional musculoskeletal complaints Integumentary/Breasts: Skin/Breast: Reports system reviewed and no additional complaints, except as docu PMFSH Past Medical History Medical History Bloody diarrhea Lower abdominal pain Nausea and vomiting in adult Pre-diabetes Anxiety Hypertension Asthma Surgical History Surgical History History of tubal ligation History of 2 sections Family History Family History Other Acute myocardial infarction Breast cancer Social History Social History Social History: The patient lives in [place] with her fiance. 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 No alcohol or illicit substance abuse. She designates her fiance, Brooks Riggs, as her surrogate decision maker and she wishes to be a full code. Years smoked: 9 Smoking status: Former smoker Tobacco type: cigarettes Alcohol intake: never Substance use type: does not use Living arrangements: with family Gender identity (if verbalized by the patient): Female Spiritual care concerns: No Comments At the time of my signature, I reviewed and agree with the nursing past medical, surgical, social, and family history. There is no relevant family history pertinent to the patient complaint. Exam Const: General: cooperative, healthy appearing, comfortable, no acute distress, well developed, alert and well nourished Nutritional Appearance: well nourished Orientation/consciousness: patient oriented x3 Limitations: no limitations HENMT: Head: normal to inspection Ears: hearing grossly normal bilaterally, external ears normal, TM's normal bilaterally, EAC's normal, mastoids normal and no periauricular adenopathy Mouth: Yes Normal oral and palatal mucosa present, Yes lip normal, Yes tongue normal and Yes moist mucous membranes Throat: posterior oropharynx normal, uvula midline and no uvular edema Eyes: General: appearance normal, both eyes and all related structures Alignment and Position: alignment normal Neck: Neck: normal visual inspection, full ROM, no lymphadenopathy and no meningeal signs Chest: Chest palpation & inspection: normal inspection of the chest Resp: Effort & Inspection: normal respiratory effort and able to speak in complete sentences Auscultation: clear to auscultation bilaterally, no crackles, no rales, no rhonchi and no wheezes Cardio: Rate: regular rate GI: GI Palp: No abdominal tenderness : Other: Deferred, patient has a history of BV, will treat based on symptoms Skin: General skin exam: normal color and no rashes or lesions noted Neuro: General: patient oriented x3, gait normal, moves all extremities and no meningeal signs Cognition (Neuro): normal cognition Speech: normal speech Gait exam (Neuro): Normal gait present Extrem: General: normal to inspection, full ROM, capillary refill normal and normal gait Psych: Appearance: grossly normal and well kempt Mental Status: mental status grossly normal Speech and movement: Normal speech and movement present and Clear speech present Affect: normal affect Attitude: cooperative Course Course Level of Care: Express Care Visit Vital Signs Vital signs: Vital Signs Temperature 97.5 F L 03/10/25 14:39 Pulse Rate 72 03/10/25 14:39 Respiratory Rate 18 03/10/25 14:39 Blood Pressure 131/71 03/10/25 14:39 Pulse Oximetry 03/10/25 14:39 Oxygen Delivery Room Air 03/10/25 14:39 Temperature 97.5 F L 03/10/25 14:39 Pulse Rate 72 03/10/25 14:39 Respiratory Rate 18 03/10/25 14:39 Blood Pressure 131/71 03/10/25 14:39 Pulse Oximetry 03/10/25 14:39 Oxygen Delivery Room Air 03/10/25 14:39 Reviewed MDM - URI/Sore Throat MDM Narrative Medical decision making narrative: Patient sitting in exam room. Patient is nontoxic, vitals are stable. Patient presents with cough and vaginal complaints. Patient is currently on cephalexin, was prescribed a steroid. Has been using her inhaler with no improvement. Patient requesting BV medication, vaginal cream. Patient appropriate for outpatient treatment and follow-up Discharge instructions reviewed with patient, as well as provided in writing per nursing staff. The instructions also include specific and strict return/GO TO THE ER as well as f/u information. All questions have been answered, and the patient deny any further questions with discharge and discharge plan. Some parts of this dictation were generated by voice recognition software and may contain typographical and/or grammatical inaccuracies. Differential Diagnosis Differential diagnosis: Likely upper respiratory infection, otitis media, sinusitis, viral infection and bronchitis Critical Care Time Critical Care Time Critical Care Time: No Discharge Plan Discharge Clinical Impression: Bronchitis Patient Disposition: Home Condition: Stable Instructions: Antibiotic Form, Bacterial Vaginosis (ED), Acute Bronchitis (ED) Additional Instructions: It is very important to treat your symptoms. Drink plenty of water, Gatorade, Pedialyte, ice pops or Jell-O. Use your nebulizer 3 to 4 times a day as needed for cough and shortness of breath. -Alternate Tylenol and Motrin per package directions for fever or pain. You can alternate every 4 hours -Antihistamine medication such as Zyrtec/Claritin/Josie during the day can help improve symptoms. -doing daily nasal irrigations can help relieve pressure your sinuses. Things like a Neti pot -Use Flonase twice a day for 5 days then daily to help reduce the inflammation and dry up your sinuses. -You can also use Coricidin HBP or Mucinex. Be sure to drink plenty of water with this medication at least 8 ounces with every dose and it is important to drink 8 to 10 glasses of water per day. Water is a natural decongestant -Frequent hand washing or hand newspaper stuffer is one of the best ways to prevent spread of infection. -Using a vaporizer or humidifier at night will also help thin secretions and help with coughing up phlegm. -Follow up with primary care provider in 7-10 days if condition is not improving - For new or worsening symptoms go directly to the nearest ER Patient Language: Indonesian Prescriptions: No Action fluticasone propionate [Flovent HFA] 110 mcg/actuation HFA aerosol inhaler 1 inh INHALATION BID budesonide-formoterol [Symbicort] 80-4.5 mcg/actuation HFA aerosol inhaler 2 inh INHALATION BID metformin 500 mg tablet 500 mg PO BID alprazolam 0.5 mg tablet 1 tablet PO BID diazepam 2 mg tablet 1 tablet PO HS pantoprazole 40 mg tablet,delayed release (DR/EC) 1 tablet PO DAILY Qvar RediHaler 80 mcg/actuation HFA aerosol breath activated INHALATION albuterol sulfate [Ventolin HFA] 90 mcg/actuation HFA aerosol inhaler 2 puff inhalation QID PRN (Reason: shortness of breath or wheezing) Qty: 8.5 0RF diltiazem HCl 30 mg tablet naproxen 500 mg tablet 500 mg PO BID PRN (Reason: pain) 7 Days Qty: 14 0RF triamcinolone acetonide 0.1 % cream 1 applic topical BID 7 Days Qty: 30 0RF clindamycin HCl [Cleocin HCl] 300 mg capsule 300 mg PO Q8H 7 Days Qty: 21 0RF amoxicillin-pot clavulanate 875-125 mg tablet 1 tablet PO Q12H 7 Days Qty: 14 0RF Follow-up/Referrals: Armida,Allyson Boyd, [employer]ER [Primary Care Provider] - Time of Disposition: 15:12
[2025-03-10 14:39] VITALS: BP 131/71; PULSE 72; RESP 18; TEMP 36.4; O2SAT 95
== END 2025-03-10 15:25 | disposition home or self-care (01) ==
PROVIDERS: Emergency Provider Nurse Practitioner
DX: J40 Bronchitis, not specified as acute or chronic (principal); Z87.891 Personal history of nicotine dependence; I10 Essential (primary) hypertension; J45.909 Unspecified asthma, uncomplicated
CPT/HCPCS: 99213; G0463

== ENCOUNTER 2025-06-17 16:24 | Emergency (ER) | payer OTHER, SELFPAY ==
[2025-06-17 16:31] VITALS: BP 141/84; PULSE 81; RESP 16; TEMP 36.8; O2SAT 97
--- NOTE | 2025-06-17 16:57 | ED_ITS ---
HPI - Skin/Abscess/Foreign Bdy General Chief complaint: Skin/Abscess/Foreign Body Stated complaint: body rash Time Seen by Provider: 06/17/25 16:58 Source: patient Mode of arrival: ambulatory Limitations: no limitations History of Present Illness HPI narrative: 49-year-old female presented for complaint of itchy rash to face, arms and trunk. Onset yesterday. Says she woke yesterday with eyelid swelling, which has resolved. Admits to changing laundry detergent from pause to liquid as well as changing body wash. Patient took Benadryl, applied Benadryl cream, and took half of the steroid she had left over. Endorses improvement in the rash appearance. Denies lip, tongue, or throat swelling, shortness of breath or wheezing. Denies changes to soap, detergent, lotion, or any other exposures. No one else in the house or any contacts with similar symptoms. Related Data Home Medications ?Medication ?Instructions ?Recorded ?Confirmed ?Last Taken ?Type pantoprazole 40 mg tablet,delayed 1 tablet PO DAILY 05/17/24 Unknown History release diltiazem HCl 30 mg tablet mg 10/28/24 Unknown Histor y albuterol 90 mcg-budesonide 80 inh inhalation 06/17/25 Unknown History mcg/actuation HFA aerosol inhaler (Airsupra) Allergies Allergy/AdvReac Type Severity Reaction Status Date / Time doxycycline Allergy Intermediate Hives Verified 06/17/25 16:44 levofloxacin Allergy Intermediate Hives Verified 06/17/25 16:44 sulfamethoxazole Allergy Intermediate Hives / Verified 06/17/25 16:44 Red Face trimethoprim Allergy Intermediate Hives / Verified 06/17/25 16:44 Red Face Review of Systems Review of Systems: CONSTITUTIONAL: Denies body aches, fever, chills, or sweats. EYES: Denies visual changes, redness, or discharge. ENT: Denies rhinorrhea, congestion CARDIOVASCULAR: Denies chest pain, palpitations, or edema. RESPIRATORY: Denies cough or dyspnea. GASTROINTESTINAL: Denies abdominal pain, nausea, vomiting, or diarrhea. SKIN: reports rash MUSCULOSKELETAL: Denies back pain, joint pain, or myalgia. NEUROLOGIC: Denies headache, numbness, tingling, or weakness. [facility] Past Medical History Medical History Bloody diarrhea Lower abdominal pain Nausea and vomiting in adult Pre-diabetes Anxiety Hypertension Asthma Surgical History Surgical History History of tubal ligation History of 2 sections Family History Family History Other Acute myocardial infarction Breast cancer Social History Social History Social History: The patient lives in [place] with her jenniffer. 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 No alcohol or illicit substance abuse. She designates her fiance, Brooks Riggs, as her surrogate decision maker and she wishes to be a full code. Years smoked: 9 Smoking status: Former smoker Tobacco type: cigarettes Alcohol intake: never Substance use type: does not use Living arrangements: with family Gender identity (if verbalized by the patient): Female Spiritual care concerns: No Comments At time of signature, I have reviewed and agree with nursing past medical, surgical, social and family history unless otherwise noted. Please see nursing chart for further information. There is no relevant family history pertinent to the presenting complaint Exam Narrative: GENERAL: Well-appearing HEAD: Normocephalic, atraumatic. EYES: conjunctivae clear, and EOMI. ENT: Mucous membranes moist. Oropharynx without edema, erythema or lesions. NECK: Supple. No lymphadenopathy CHEST: Clear to auscultation. HEART: Regular rate and rhythm. SKIN: Warm, dry. flat erythematous irregular patches noted across face, torso and arms consistent with allergic reaction NEURO: Alert and oriented x3. Course Course Emergency Course: Patient is aware of diagnosis, understands and agrees to treatment plan. Anticipatory guidance given. Patient agrees to follow-up as directed and is aware of reasons to seek care at the emergency department. Portions of this record may have been created with voice recognition software Level of Care: Express Care Visit Vital Signs Vital signs: Vital Signs Temperature 98.2 F 06/17/25 16:31 Pulse Rate 81 06/17/25 16:31 Respiratory Rate 16 06/17/25 16:31 Blood Pressure 141/84 H 06/17/25 16:31 Pulse Oximetry 97 06/17/25 16:31 Oxygen Delivery Room Air 06/17/25 16:31 Temperature 98.2 F 06/17/25 16:31 Pulse Rate 81 06/17/25 16:31 Respiratory Rate 16 06/17/25 16:31 Blood Pressure 141/84 H 06/17/25 16:31 Pulse Oximetry 97 06/17/25 16:31 Oxygen Delivery Room Air 06/17/25 16:31 Reviewed MDM - Skin/Abscess/Foreign Bdy MDM Narrative Medical decision making narrative: Discussed physical exam findings and reviewed prescription. Advised supportive measures and signs/symptoms to go to the ER. Pt is appropriate for outpt treatment and f/u. Differential Diagnosis Differential diagnosis: Likely abscess of skin or subcutaneous tissue, viral exanthem, dermatophytosis, urticaria, herpes zoster, cellulitis, eczema, insect bites, impetigo and contact dermatitis Discharge Plan Discharge Clinical Impression: Dermatitis Patient Disposition: Home Condition: Stable Instructions: Antibiotic Form, General Allergic Reaction (ED) Additional Instructions: Take steroids as directed. Benadryl every 8 hours as needed for itching Cool compresses to the sites of itching, avoid hot water. Avoid scratching to reduce the risk of infection Follow up with your primary care provider as needed in 1 week Go to the ER for worsening symptoms or concerns (lip, tongue, throat swelling/itching, trouble breathing etc) Patient Language: Sri Lankan Prescriptions: New prednisone 20 mg tablet 20 mg PO DAILY Qty: 11 0RF Rx Instructions: take 2 tablets daily for 3 days, then 1 tablets daily for 3 days then half tablet daily for 3 days No Action pantoprazole 40 mg tablet,delayed release (DR/EC) 1 tablet PO DAILY diltiazem HCl 30 mg tablet Airsupra 90-80 mcg/actuation HFA aerosol inhaler INHALATION Follow-up/Referrals: Armida,Allyson Boyd, MEMBERSHIP ASSISTANT [Primary Care Provider, Unknown] Stand Alone Forms: Work/School Release IP Time of Disposition: 17:18
== END 2025-06-17 17:13 | disposition home or self-care (01) ==
PROVIDERS: Emergency Provider Nurse Practitioner Family
DX: L30.9 Dermatitis, unspecified (principal); I10 Essential (primary) hypertension; J45.909 Unspecified asthma, uncomplicated; R73.03 Prediabetes; Z87.891 Personal history of nicotine dependence
CPT/HCPCS: 99213; G0463

== ENCOUNTER 2025-08-14 18:22 | Emergency (ER) | payer OTHER, SELFPAY ==
[2025-08-14 18:28] VITALS: BP 125/64; PULSE 75; RESP 20; TEMP 36.7; O2SAT 97
--- NOTE | 2025-08-14 18:43 | ED_ITS ---
HPI - URI/Sore Throat General Chief Complaint: Upper Respiratory Infection Stated Complaint: chest congestion Time Seen by Provider: 08/14/25 18:43 Source: patient Mode of arrival: ambulatory Limitations: no limitations History of Present Illness HPI Narrative: 50 yo F with hx of asthma presents with c/o feeling blah. Cough, fatigue. Using inhalers. Requesting steroids to knock it out. All systems reviewed and negative except as noted above. Related Data Home Medications ?Medication ?Instructions ?Recorded ?Confirmed ?Last Taken ?Type pantoprazole 40 mg tablet,delayed 1 tablet PO DAILY 05/17/24 Unknown History release diltiazem HCl 30 mg tablet mg 10/28/24 Unknown Histor y albuterol 90 mcg-budesonide 80 inh inhalation 06/17/25 Unknown History mcg/actuation HFA aerosol inhaler (Airsupra) albuterol sulfate 2.5 mg/3 mL mg 08/14/25 Unknown His tory (0.083 %) solution for nebulization Allergies Allergy/AdvReac Type Severity Reaction Status Date / Time doxycycline Allergy Intermediate Hives Verified 08/14/25 18:34 levofloxacin Allergy Intermediate Hives Verified 08/14/25 18:34 sulfamethoxazole Allergy Intermediate Hives / Verified 08/14/25 18:34 Red Face trimethoprim Allergy Intermediate Hives / Verified 08/14/25 18:34 Red Face PMFSH Past Medical History Medical History Bloody diarrhea Lower abdominal pain Nausea and vomiting in adult Pre-diabetes Anxiety Hypertension Asthma Surgical History Surgical History History of tubal ligation History of 2 sections Family History Family History Other Acute myocardial infarction Breast cancer Social History Social History Social History: The patient lives in [place] with her fiance. 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 No alcohol or illicit substance abuse. She designates her fiance, Brooks BurnsOneil, as her surrogate decision maker and she wishes to be a full code. Years smoked: 9 Tobacco type: cigarettes Alcohol intake: never Substance use type: does not use Living arrangements: with family Gender identity (if verbalized by the patient): Female Spiritual care concerns: No Comments At time of signature, agree with nursing past medical, surgical, social and fa trey history. There is no relevant family history pertinent to the presenting complaint. Exam Narrative: GENERAL: This is a well-nourished, well-developed patient, in no apparent distress. HEAD: normocephalic, atraumatic. EYES: PERRL. Sclera clear/white. Vision is grossly intact. EARS: External ears normal, auditory canals clear and without drainage, TMs normal without perforation. Hearing grossly intact. NOSE: External nose normal with no obvious nasal discharge, nares without redness, no rhinorrhea. THROAT: Mucous membranes moist, posterior pharynx clear. NECK: Neck supple, non-tender without lymphadenopathy, masses or thyromegaly. CARDIOVASCULAR: Regular rate and rhythm without murmurs, gallops, or rubs. RESPIRATORY: Clear to auscultation. Breath sounds equal bilaterally. No wheezes, rales, or rhonchi. SKIN: warm, Dry, intact with no suspicious lesions or rash, good texture and turgor. NEURO: awake, alert, and oriented to person, place and time. There were no obvious focal neurologic abnormalities. EXTREMITIES: No joint tenderness, effusion, or edema noted. Course Course Level of Care: Express Care Visit Vital Signs Vital signs: Vital Signs Temperature 36.7 C 08/14/25 18:28 Pulse Rate 75 08/14/25 18:28 Respiratory Rate 20 08/14/25 18:28 Blood Pressure 125/64 08/14/25 18:28 Pulse Oximetry 97 08/14/25 18:28 Oxygen Delivery Room Air 08/14/25 18:28 Temperature 36.7 C 08/14/25 18:28 Pulse Rate 75 08/14/25 18:28 Respiratory Rate 20 08/14/25 18:28 Blood Pressure 125/64 08/14/25 18:28 Pulse Oximetry 97 08/14/25 18:28 Oxygen Delivery Room Air 08/14/25 18:28 Reviewed MDM - URI/Sore Throat MDM Narrative Medical decision making narrative: patient's exam normal. Lungs clear to auscultation. Patient offered COVID and influenza testing but she declined. Patient just wants prednisone to treat her asthma. She has no wheezing on auscultation. Differential Diagnosis Differential diagnosis: Likely upper respiratory infection, sinusitis, viral infection and influenza Discharge Plan Discharge Clinical Impression: Viral upper respiratory tract infection with cough Patient Disposition: Home Condition: Stable Instructions: Upper Respiratory Infection (ED) Additional Instructions: your symptoms are viral and may last 10-14 days. Take prednisone as prescribed. Continue to use inhalers as prescribed. See your doctor symptoms are not improving. Patient Language: [place]i Prescriptions: New prednisone 20 mg tablet 40 mg PO DAILY 5 Days Qty: 10 0RF No Action albuterol sulfate 2.5 mg /3 mL (0.083 %) solution for nebulization pantoprazole 40 mg tablet,delayed release (DR/EC) 1 tablet PO DAILY diltiazem HCl 30 mg tablet Airsupra 90-80 mcg/actuation HFA aerosol inhaler INHALATION Follow-up/Referrals: Armida,Allyson Boyd, AUTOMOTIVE SALES SPECIALIST [Primary Care Provider, Unknown] Time of Disposition: 18:50
== END 2025-08-14 18:55 | disposition home or self-care (01) ==
PROVIDERS: Emergency Provider Nurse Practitioner Family
DX: J06.9 Acute upper respiratory infection, unspecified (principal); R05.9 Cough, unspecified; I10 Essential (primary) hypertension; J45.909 Unspecified asthma, uncomplicated; R73.03 Prediabetes; Z87.891 Personal history of nicotine dependence
CPT/HCPCS: 99213; G0463

== ENCOUNTER 2025-08-16 18:18 | Emergency (ER) | payer OTHER, SELFPAY ==
--- NOTE | 2025-08-16 18:21 | ECG_ITS ---
Test Date: 2025-08-16 18:36:04 Measurements Intervals [place] Rate: 85 P: 73 OR: 147 QRS: 51 QRSD: 88 T: 30 QT: 377 QTc: 449 Interpretive Statements SINUS RHYTHM NORMAL ECG No previous ECG available for comparison Electronically Signed On 08-17-2025 08:29:25 IMMIGRATION JUDGE by Killian Nails M.D.
[2025-08-16 18:27] VITALS: BP 125/65; PULSE 77; RESP 20; TEMP 36.8; O2SAT 97
--- NOTE | 2025-08-16 18:55 | ED_ITS ---
HPI - URI/Sore Throat General Chief Complaint: Upper Respiratory Infection Stated Complaint: SOB Time Seen by Provider: 08/16/25 18:40 Source: patient and RN notes reviewed Mode of arrival: ambulatory Limitations: no limitations History of Present Illness HPI Narrative: 50-year-old female presents Express Care with her daughter complaining of shortness of breath started approximately 5 days ago. Patient was seen here 2 days ago for the same symptoms, she was sent home with prednisone, she started yesterday she reports some improvement in his symptoms however she feels like she is getting worse. Patient reports cough, congestion, runny nose, shortness of breath with exertion. Denies any chest pain or shortness of breath at rest. Patient denies any difficulty breathing. Patient says the cough is more p roductive in reports mucopurulent sputum production. Patient denies any fevers body aches, chills, nausea vomiting, diarrhea, jaw pain, left arm pain, or any other symptoms. Patient reports she has a history of asthma has been using inhaler as directed. Related Data Home Medications ?Medication ?Instructions ?Recorded ?Confirmed ?Last Taken ?Type pantoprazole 40 mg tablet,delayed 1 tablet PO DAILY 05/17/24 Unknown History release diltiazem HCl 30 mg tablet mg 10/28/24 Unknown Histor y albuterol 90 mcg-budesonide 80 inh inhalation 06/17/25 Unknown History mcg/actuation HFA aerosol inhaler (Airsupra) albuterol sulfate 2.5 mg/3 mL mg 08/14/25 Unknown His tory (0.083 %) solution for nebulization Allergies Allergy/AdvReac Type Severity Reaction Status Date / Time doxycycline Allergy Intermediate Hives Verified 08/16/25 18:42 levofloxacin Allergy Intermediate Hives Verified 08/16/25 18:42 sulfamethoxazole Allergy Intermediate Hives / Verified 08/16/25 18:42 Red Face trimethoprim Allergy Intermediate Hives / Verified 08/16/25 18:42 Red Face Review of Systems Review of Systems: CONSTITUTIONAL: Denies fever, body aches, chills, or sweats. EYES: Denies visual changes, redness, or discharge. ENT: Denies sore throat, or otalgia. Positive for congestion or rhinorrhea. CARDIOVASCULAR: Denies chest pain, palpitations, dizziness, lightheadedness, or edema. RESPIRATORY: Positive for cough or dyspnea with exertion. Negative for difficulty breathing, wheezing, dyspnea at rest. GASTROINTESTINAL: Denies abdominal pain, nausea, vomiting, or diarrhea. GENITOURINARY: Denies dysuria or hematuria. SKIN: Denies rash or itching. MUSCULOSKELETAL: Denies back pain, joint pain, or myalgia. NEUROLOGIC: Denies headache, numbness, or weakness. PSYCHIATRIC: Denies anxiety or depression. All other systems reviewed are negative, except as documented in HPI. [facility] Past Medical History Medical History Bloody diarrhea Lower abdominal pain Nausea and vomiting in adult Pre-diabetes Anxiety Hypertension Asthma Surgical History Surgical History History of tubal ligation History of 2 sections Family History Family History Other Acute myocardial infarction Breast cancer Social History Social History Social History: The patient lives in [place] with her fiance. 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 No alcohol or illicit substance abuse. She designates her fiance, Brooks Riggs, as her surrogate decision maker and she wishes to be a full code. Years smoked: 9 Tobacco type: cigarettes Alcohol intake: never Substance use type: does not use Living arrangements: with family Gender identity (if verbalized by the patient): Female Spiritual care concerns: No Comments At the time of my signature, I reviewed and agree with the nursing past medical, surgical, social, and family history. There is no relevant family history pertinent to the patient complaint. Exam Narrative: GENERAL: This is a well-nourished, well-developed adult, in no apparent distress. They are non ill-appearing, nontoxic appearing. HEAD: normocephalic, atraumatic. EYES: Sclera clear/white. Conjunctiva normal. Vision is grossly intact. Extraocular movements intact EARS: External ears normal, auditory canals clear and without drainage, TMs normal without perforation. Hearing grossly intact. NOSE: External nose normal with no obvious nasal discharge, nasal turbinates your thank without swelling, no rhinorrhea. THROAT: Mucous membranes moist, posterior pharynx clear, without erythema or swelling. Uvula midline. Cobblestone appearing. NECK: Neck supple, non-tender without lymphadenopathy, masses or thyromegaly. CARDIOVASCULAR: Regular rate and rhythm without murmurs, gallops, or rubs. RESPIRATORY: Clear to auscultation. Breath sounds equal bilaterally. No wheezes, rales, or rhonchi. Respiratory rate normal, respiratory effort nonlabored, no respiratory distress, patient able speak in full sentences. SKIN: warm, Dry, intact with no suspicious lesions or rash, good texture and turgor. NEURO: awake, alert, and oriented to person, place and time. There were no obvious focal neurologic abnormalities. EXTREMITIES: No joint tenderness, effusion, or edema noted. BACK: Nontender without deformity. No CVA tenderness. Course Course Emergency Course: Portions of this record may have been created with voice recognition software Level of Care: Express Care Visit Vital Signs Vital signs: Vital Signs Temperature 98.2 F 08/16/25 18:27 Pulse Rate 77 08/16/25 18:27 Respiratory Rate 20 08/16/25 18:27 Blood Pressure 125/65 08/16/25 18:27 Pulse Oximetry 97 08/16/25 18:27 Oxygen Delivery Room Air 08/16/25 18:27 Temperature 98.2 F 08/16/25 18:27 Pulse Rate 77 08/16/25 18:27 Respiratory Rate 20 08/16/25 18:27 Blood Pressure 125/65 08/16/25 18:27 Pulse Oximetry 97 08/16/25 18:27 Oxygen Delivery Room Air 08/16/25 18:27 Reviewed MDM - URI/Sore Throat [facility] Narrative Medical decision making narrative: EKG sinus rhythm without ischemic findings. Patient is having no chest pain. Patient's lung sounds are clear to auscultation. Patient reports some improvement of symptoms with prednisone however given her change of her sputum production she was concerned that his reading worse. Patient's says her shortness of breath is unchanged. Likely patient has a viral bronchitis. No adventitious lung sounds to suggest pneumonia. Patient nontoxic appearing, no apparent distress. No respiratory distress. Vital signs hemodynamically stable. Patient afebrile, no tachycardia. Offered patient ER transfer for further evaluation management of her symptoms and she declined. Patient declined viral testing. Discussed physical exam findings. Advised supportive measures and signs/symptoms to go to the ER. Pt is appropriate for outpt treatment and f/u. Differential Diagnosis Differential diagnosis: Likely upper respiratory infection, viral infection, bronchitis and other (Asthma exacerbation, pneumonia) ECG Data EKG #1: Attestation: I personally reviewed and interpreted this ECG as follows: ECG completion date: 08/16/25 ECG completion time: 18:36 Prior ECG tracings: not available for review EKG Interpretation: normal rate, sinus rhythm, no ectopy, no ST changes, normal QRS, normal QT and NL axis Critical Care Time Critical Care Time Critical Care Time: No Discharge Plan Discharge Clinical Impression: Bronchitis Patient Disposition: Home Condition: Stable Instructions: Antibiotic Form, Acute Bronchitis (ED) Additional Instructions: EKG is a normal sinus rhythm today. Acute bronchitis can be contagious because it is usually caused by infection with a virus. Viral illness may last between 7-10 days; antibiotics do not cure viral illness and are NOT recommended at this time. Continue to take the prednisone as directed. Use your inhaler as needed for shortness of breath or wheezing. Tylenol or Motrin as needed for pain or fevers. Follow instructions on the bottle. Symptomatic treatment includes: rest, fluids, and increase humidity of the air at home. Follow up with your primary care provider 3-5 days. Go to the ER for worsening symptoms, shortness of breath at rest, difficulty breathing, chest pains, vomiting, fevers, or any serious concerns. Patient Language: [place]ill[place] Prescriptions: No Action albuterol sulfate 2.5 mg /3 mL (0.083 %) solution for nebulization pantoprazole 40 mg tablet,delayed release (DR/EC) 1 tablet PO DAILY diltiazem HCl 30 mg tablet Airsupra 90-80 mcg/actuation HFA aerosol inhaler INHALATION Follow-up/Referrals: Armida,Allyson Boyd, AUTOMATIC LUMP MAKING MACHINE TENDER [Primary Care Provider, Unknown] Time of Disposition: 18:53
== END 2025-08-16 18:58 | disposition home or self-care (01) ==
DX: J40 Bronchitis, not specified as acute or chronic (principal); F17.210 Nicotine dependence, cigarettes, uncomplicated; I10 Essential (primary) hypertension; J45.909 Unspecified asthma, uncomplicated; R73.03 Prediabetes
CPT/HCPCS: 93005; 99213; G0463